=== PATIENT | female | born 1950 | race Caucasian/White ===

== ENCOUNTER → 2024-04-15 12:58 | Outpatient (REF) | payer MEDICARE, OTHER, SELFPAY | LOC: MRI 3T 12:58 | PROVIDERS: ATTENDING PHYSICIAN Pain Medicine Pain Medicine; FAMILY PHYSICIAN Internal Medicine | DX: M54.16 Radiculopathy, lumbar region (principal) | CPT/HCPCS: 72148 ==

== ENCOUNTER → 2024-06-09 10:54 | Outpatient (REF) | payer MEDICARE, OTHER, SELFPAY | LOC: WDC 10:54 | PROVIDERS: ATTENDING PHYSICIAN Obstetrics & Gynecology Gynecology; FAMILY PHYSICIAN Internal Medicine | DX: Z12.31 Encounter for screening mammogram for malignant neoplasm of breast (principal) | CPT/HCPCS: 77063; 77067 ==

== ENCOUNTER → 2024-09-15 20:17 | Outpatient (REF) | payer MEDICARE, OTHER, SELFPAY | LOC: MRI 20:17 | PROVIDERS: ATTENDING PHYSICIAN Pain Medicine Pain Medicine | DX: G57.00 Lesion of sciatic nerve, unspecified lower limb (principal) | CPT/HCPCS: 72195 ==

== ENCOUNTER → 2024-11-14 10:45 | Outpatient (REF) | payer MEDICARE, OTHER, SELFPAY | LOC: PAVMRI 10:45 | PROVIDERS: ATTENDING PHYSICIAN Pain Medicine Pain Medicine; FAMILY PHYSICIAN Internal Medicine | DX: M54.16 Radiculopathy, lumbar region (principal); M96.1 Postlaminectomy syndrome, not elsewhere classified | CPT/HCPCS: 72148 ==

== ENCOUNTER 2025-05-26 09:15 | Inpatient (IN) | payer MEDICARE, OTHER, SELFPAY ==
[2025-05-23 20:00] VITALS: BP 148/68
[2025-05-23] MEDS: DILAUDID 0.25 MG IV (21:27)
[2025-05-23] MEDS: DECADRON 10 MG IV (21:27)
[2025-05-23 21:39] VITALS: BP 87/68
--- NOTE | 2025-05-23 21:48 | ED.GENMED ---
History of Present Illness
<Carlos Dick DO - Last Filed: 05/23/25 21:52>
General
Chief Complaint: Musculo-Skeletal Complaint
Time Seen by Provider: 05/23/25 20:56
<Lynn Clancy COAGULATION OPERATOR - Last Filed: 05/23/25 23:35>
General
Source: patient
Exam Limitations: none
Nursing documentation reviewed up to this point in time: agreed with
History of Present Illness
History of Present Illness:
Patient to ED with complaint of severe pain to left buttocks radiating down left posterior leg. Symptoms started approx 1 week ago. No history of trauma. She has a history of chronic low back pain. Takes hydrocodone for this pain. Pain meds
have not been effective with this pain. Denies fever/chills. +nausea. No vomiting or diarrhea. No skin rash. Denies any history of trauma. No bowel or bladder issues, no saddle paresthesia. 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
medrol dose pack but this has not improved her symptpoms. Brought to ED by spouse for eval.
Past History
<Carlos Dick DO - Last Filed: 05/23/25 21:52>
Social History
Tobacco: Non-smoker
Personal:
<Lynn Clancy COAGULATION OPERATOR - Last Filed: 05/23/25 23:35>
Past History
ED Past Medical History: HTN, Psychiatric (depression) and Other (chronic low back pain)
Review of Systems
<Lynn Clancy NP - Last Filed: 05/23/25 23:35>
Review of Systems
Allergies reviewed?: Yes
All Other Systems: ROS reviewed and negative except as documented in HPI and ROS
Constitutional: Reports no symptoms
EENT: Reports no symptoms
Respiratory: Reports no symptoms
Cardiac: Reports no symptoms
ABD/GI: Reports no symptoms
Musculoskeletal: Reports other (Chonic low back pain. New pain left buttock radiating down left leg)
Skin: Reports no symptoms
Neurological: Reports other (nerve pain left buttocks radiating down LLE)
Psychiatric: Reports no symptoms
Phy Exam
<Lynn Clancy, COAGULATION OPERATOR - Last Filed: 05/23/25 23:35>
General Physical Exam
General Presentation: moderate distress
General age: appears stated age
General Skin: warm and dry
General Habitus: normal
General Mental: alert
Cardiovascular Exam
Cardiovascular Exam: regular rate/rhythm and no edema
Pulmonary Exam
Pulmonary Exam: no respiratory distress and chest non tender
Musculoskeletal Exam
Musculoskeletal Exam: no edema, neuro vasc intact and other (Nerve pain left buttock radiating down left leg. LLE neurovasc intact)
Skin Exam
Skin Exam: normal color and warm/dry
Psychiatric Exam
Psychiatric Exam: normal mood/affect
Course
<Carlos Dick, DO - Last Filed: 05/23/25 21:52>
Orders/Labs/Results
Orders:
Orders
05/23/25 21:21
Dexamethasone Sod Phosphate [Decadron] 10 mg IV NOW STA
HYDROmorphone [Dilaudid] 0.25 mg IV NOW STA
05/23/25 21:47
diazePAM [Valium Injection] 5 mg IV NOW STA
05/23/25 22:08
IV Insert/Care/Rem.- Treatment PRN
Complete Blood Count/With Diff Urgent
Comprehensive Metabolic Panel Urgent
05/23/25 23:34
HYDROmorphone [Dilaudid] 0.5 mg IV NOW STA
Abnormal Lab Results
05/23/25
22:08
RBC 3.11 L 10^6/uL
(4.20-5.40)
Hgb 9.8 L g/dL
(12.0-16.0)
Hct 28.3 L %
(37.0-47.0)
MCH 31.5 H pg
(27.0-31.0)
MPV 10.5 H fL
(7.4-10.4)
Absolute Lymphs (auto) 1.0 L 10^3/uL
(1.2-3.4)
Lymphocytes % 16.1 L %
(20.5-51.1)
BUN 28 H mg/dl
(7-17)
05/23/25 22:08
05/23/25 22:08
Vital Signs
Initial and Last Documented VS:
Initial Vital Signs
Temp Pulse Resp BP
97.9 F 81 14 148/68
05/23/25 20:00 05/23/25 20:00 05/23/25 20:00 05/23/25 20:00
Last Documented Vital Signs
Temp Pulse Resp BP Pulse Ox
98.1 F 82 24 106/56 99
05/23/25 21:39 05/23/25 22:45 05/23/25 22:45 05/23/25 22:30 05/23/25 22:45
<Lynn Clancy NP - Last Filed: 05/23/25 23:35>
Orders/Labs/Results
Orders:
Orders
05/23/25 21:21
Dexamethasone Sod Phosphate [Decadron] 10 mg IV NOW STA
HYDROmorphone [Dilaudid] 0.25 mg IV NOW STA
05/23/25 21:47
diazePAM [Valium Injection] 5 mg IV NOW STA
05/23/25 22:08
IV Insert/Care/Rem.- Treatment PRN
Complete Blood Count/With Diff Urgent
Comprehensive Metabolic Panel Urgent
05/23/25 23:34
HYDROmorphone [Dilaudid] 0.5 mg IV NOW STA
Abnormal Lab Results
05/23/25
22:08
RBC 3.11 L 10^6/uL
(4.20-5.40)
Hgb 9.8 L g/dL
(12.0-16.0)
Hct 28.3 L %
(37.0-47.0)
MCH 31.5 H pg
(27.0-31.0)
MPV 10.5 H fL
(7.4-10.4)
Absolute Lymphs (auto) 1.0 L 10^3/uL
(1.2-3.4)
Lymphocytes % 16.1 L %
(20.5-51.1)
BUN 28 H mg/dl
(7-17)
05/23/25 22:08
05/23/25 22:08
Vital Signs
Initial and Last Documented VS:
Initial Vital Signs
Temp Pulse Resp BP
97.9 F 81 14 148/68
05/23/25 20:00 05/23/25 20:00 05/23/25 20:00 05/23/25 20:00
Last Documented Vital Signs
Temp Pulse Resp BP Pulse Ox
98.1 F 82 24 106/56 99
05/23/25 21:39 05/23/25 22:45 05/23/25 22:45 05/23/25 22:30 05/23/25 22:45
<Carlos Dick, DO - Last Filed: 05/23/25 21:52>
*Pulse Oximetry
SaO2: 100
Oxygen Mode of Delivery: Room air
<Lynn Clancy, COAGULATION OPERATOR - Last Filed: 05/23/25 23:35>
*Pulse Oximetry
Patient hypoxic: no
*Critical Care Note
Total Time (30-74mins, 75-104mins- exclusive of procedures): Not Applicable
<Lynn Clancy, COAGULATION OPERATOR - Last Filed: 05/23/25 23:35>
Update Note
Update Note:
Patient to ED [facility] nerve pain left buttock radiating down left leg. Taking hydrocodone and medrol dose pack without improvement. LLE neurovasc intact. No s/s cauda equina. Given IV dilaudid intially. She reports no mprovement. Case discussed
with Dr. Dick who also examined this patient. Recommends adding IV valium. She reports feeling more relaxed but apolonia is unchanged, is still unable to stand on LLE due to pain. Unable to ambulate due to pain. Will admit to hospitalist.
ED Attending Note
<Carlos Dick DO - Last Filed: 05/23/25 21:52>
ED Attending Note
Patient seen and examined by attending physician: Yes
I performed the substantive portion of visit, reviewed & personally made and approve the management plan that is documented in note by myself or JONATHAN.: Yes
ED Attending Note:
I have seen and evaluated the patient with a [id number] encounter. I have spoken to the advance practicer provider and involved in the medical history, the physical exam, medical decision making.
Evaluation and management service: agree unless noted differently below.
Results interpretation: agree unless noted differently below.
Focused HPI: 74-year-old female presenting with for worsening left buttock and leg pain. She has a longstanding history of sciatica that has required surgery in the past. Patient states that the pain has worsened over the past week despite
taking Medrol Dosepak. She localizes the pain to her left buttock trouble defecating her urine
Physical exam: Uncomfortable, tearful, point tenderness to left buttock. Distal extremity neurovascularly intact
Medical Decision Making: I raise suspicion for piriformis syndrome given location of pain. Patient was already given Decadron and Dilaudid prior to my assessment. Will give dose of IV Valium
-
Portions of this chart may have been created with voice recognition software.� Occasional wrong word or��sound alike� substitutions may have occurred due to the inherent limitations of voice recognition software.
Discharge Plan
Departure
Patient Disposition: Admit
Date of Disposition: 05/23/25
Time of Disposition: 22:57
Presentation/result/management discussed w/ accepting MD/DO: Hospitalist
Condition: Fair
Covid-19: Not Applicable
Discharge Problem:
Radicular pain of left lower extremity
Prescriptions:
No Action
tizanidine 4 mg Tablet
4 mg PO BID PRN (Reason: pain)
tramadol 50 mg Tablet
50 mg PO BID PRN (Reason: pain)
mirtazapine 30 mg Tablet
30 mg PO DAILY
lisinopril 5 mg Tablet
5 mg PO DAILY
spironolactone 50 mg Tablet
50 mg PO DAILY
hydrocodone-acetaminophen 10-300 mg Tablet
1 tab PO Q6H PRN (Reason: pain)
Referrals:
Amy Ulloa DO [Family Provider, Internal Medicine]
Interventions
Interventions:
*Risk Screen - Suicide Last Done: 05/23/25 20:00
*General Assessment Last Done: 05/23/25 20:00
*Neglect/Abuse Screening Last Done: 05/23/25 20:00
*ED- Fall Risk Assessment Last Done: 05/23/25 20:50
ED-Musculoskeletal Assessment Last Done: 05/23/25 20:50
Discharge Date and Time
Print Language: MARTINIQUAIS
[2025-05-23 22:09] VITALS: BP 108/52
[2025-05-23 22:16] LABS: Hematocrit 28.3 % (37.0-47.0); Hemoglobin 9.8 g/dL (12.0-16.0); Mean Corp Hgb Conc. 34.6 g/dL (33.0-37.0); Mean Corpuscular Volume 91.0 fL (81.0-99.0); Nucleated Red Blood Cells % 0 %; Platelet Count 222 10^3/uL (130-400); Red Cell Dist. Width 11.9 % (11.5-14.5)
[2025-05-23] MEDS: VALIUM INJECTION 5 MG IV (22:16)
[2025-05-23 22:30] VITALS: BP 106/56
[2025-05-23 22:31] LABS: ALT (SGPT) 34 U/L (0-35); AST (SGOT) 25 U/L (14-36); Albumin 4.2 g/dl (3.5-5.0); Alkaline Phosphatase 50 U/L (38-126); Blood Urea Nitrogen 28 mg/dl (7-17); Calcium 9.3 mg/dl (8.4-10.2); Carbon Dioxide 27 mmol/L (22-30); Chloride 103 mmol/L (98-107); Estimated Creatinine Clearance 36 ml/min; Glucose 98 mg/dl (70-99); Potassium 4.3 mmol/L (3.5-5.1); Sodium 135 mmol/L (135-145); Total Protein 6.7 g/dl (6.3-8.2); eGFR > 60.00
[2025-05-23 23:00] VITALS: BP 138/93
--- NOTE | 2025-05-23 23:44 | HPS.HSE ---
Addendum entered and electronically signed by Allen Welsh DO 05/24/25 00:22:
Patient seen and examined independently. Agree with findings and plan as set forth by Jessica Fish PA-C.
Patient is a 74y F with PMH significant for lumbar DDD and chronic pain who presents to ED complaining of LLE radicular / sciatic pain for about one week. Patient denies any injury, trauma, heavy lifting, increased activity, etc. Pain radiates
across the L buttocks and into the posterior L thigh and has been quite severe.
Patient took a Medrol dose pack at home with no relief in her symptoms.
She has a prior history of DDD s/p surgery / laminectomy many years ago.
Ass:
LLE Radiculopathy
Intractable Pain secondary to the above
Lumbar DDD
Benign Hypertension
Chronic Anemia
MGUS
Insomnia
Plan:
Observe overnight for further evaluation and treatment.
? HNP v piriformis syndrome v other.
MRI lumbar spine in the AM.
IR eval for possible LESI if target identified.
Pain control efforts will continue.
PT / OT evaluations.
Follow-up with Dr. Hernandez as an outpatient after adequate pain control.
Continue other usual home medications.
Original Note:
Family Physician
-
Family Physician: Amy Ulloa
Chief Complaint
-
Severe Left Lower Extremity Pain
History of Present Illness
Patient is a 74 t/o female past medical history of hypertension, MGUS, chronic anemia, and chronic back pain who presents with severe left lower extremity pain. Patient reports chronic pain which she is usually able to manage with tramadol and
hydrocodone. About a week ago she developed severe pain radiating from her left gluteal fold down the back of her leg. She reports she is unable to ambulate because the pain is so severe. She completed a Medrol Dose Kelvin without any improvement in
her symptoms. She denies any numbness or tingling down the leg. She reports some she feels a pain between her vaginal and rectal area, but denies any saddle numbness. She denies bowel or bladder incontinence.
Medical History
Past Medical History
Past Medical History: Reports Other
Additional Past Medical History:
Essential Hypertension
MGUS
Chronic Anemia
Chronic Low Back Pain
Insomnia
Migraine Headaches
Past Surgical History: Reports Other
Additional Past Surgical History:
L5-S1 Discectomy
Section
Social History
Tobacco: Non-smoker
Personal:
Living: With Family
Family History
Family History: Not pertinent
Allergies / Home Medications
Allergies reflects when Allergies were last updated in [facility].
Home Medications with original date entered in [facility]
Allergy/Medication List:
Allergies
Allergy/AdvReac Type Severity Reaction Status Date / Time
clindamycin (Clindamycin) Allergy Unknown Verified 05/23/25 20:38
Home Medications
hydrocodone 10 mg-acetaminophen 300 mg tablet 1 tab PO Q6H PRN pain 05/23/25
lisinopril 5 mg tablet 5 mg PO DAILY 05/23/25
mirtazapine 30 mg tablet 30 mg PO DAILY 05/23/25
spironolactone 50 mg tablet 50 mg PO DAILY 05/23/25
tizanidine 4 mg tablet 4 mg PO BID PRN pain 05/23/25
tramadol 50 mg tablet 50 mg PO BID PRN pain 05/23/25
Review of Systems
-
A 12 point ROS was completed and negative except as noted: Yes
Physical Exam
Vital Signs
Vital Signs
Temp Pulse Resp BP Pulse Ox
98.1 F 82 24 106/56 99
05/23/25 21:39 05/23/25 22:45 05/23/25 22:45 05/23/25 22:30 05/23/25 22:45
Physical Exam
General: Well Developed, Well Nourished and Pain (Appears in significant pain)
HEENT: Anicteric and Moist mucous membranes
Respiratory: Clear and Non Labored Respirations
Cardiac: S1/S2 and Regular Rhythm
GI: Soft and Non Tender
Rectal: Deferred by Provider
Musculoskeletal: No Clubbing, No Cyanosis and No Edema
Skin: Warm and Dry
Neuro: Awake, Alert, Oriented and Nonfocal/grossly intact
Psych: Calm
Laboratory Results
-
05/23/25 22:08
05/23/25 22:08
Laboratory Results
Total Bilirubin 0.2 mg/dl (0.2-1.3) 05/23/25 22:08
AST 25 U/L (14-36) 05/23/25 22:08
ALT 34 U/L (0-35) 05/23/25 22:08
Alkaline Phosphatase 50 U/L (38-126) 05/23/25 22:08
Data Reviewed
-
Lab Data: Labs Reviewed by me
Impression/Plan
-
Severe Left Lower Extremity Radicular Pain
-Check Lumbar Spine MRI
-Continue Decadron 4mg Q8
-Start Tylenol 1000mg TID
-Add Toradol for mild pain, Oxycodone for moderate pain and Dilaudid for severe pain
-Add gabapentin 100mg TID
-Add lidocaine patch to posterior left thigh
-Consider ANTOINETTE following imaging
Essential Hypertension
-Continue lisinopril and spironolactone with hold parameters
Insomnia
-Continue mirtazapine
Chronic Anemia
-Hgb seems related stable per family
Hx MGUS - Follows with Dr. Thompson
DVT Proph: SCDs
Code Status: Full Code
[2025-05-23 23:54] VITALS: BP 126/65
[2025-05-23] MEDS: DILAUDID 0.5 MG IV (23:58)
[2025-05-24 00:30] VITALS: BP 134/68; BMI 17.1
--- NOTE | 2025-05-24 00:45 | PTCARENOTE ---
New admit to 2S from ER via stretcher and able to walk to room bed with slow but steady gait and no device. Pt. A&Ox3, visible distress, even and unlabored breathing on room air, and VSS. Bed locked and in lowest position, side rails in place, and
call light within reach.
[2025-05-24] MEDS: ZANAFLEX 4 MG PO ×2 (01:15→22:23)
[2025-05-24] MEDS: REMERON 30 MG PO ×2 (01:15→21:37)
[2025-05-24] MEDS: TORADOL 10 MG IV ×3 (01:17→18:11)
[2025-05-24] MEDS: ROXICODONE 5 MG PO ×2 (02:43→18:13)
[2025-05-24] MEDS: FLUSH (NSS) 2 FLUSH IV ×2 (03:56→04:35)
[2025-05-24] MEDS: VALIUM INJECTION 5 MG IV (03:57)
[2025-05-24] MEDS: DILAUDID 0.5 MG IV ×4 (04:34→20:15)
[2025-05-24 06:42] LABS: Hematocrit 27.8 % (37.0-47.0); Hemoglobin 9.7 g/dL (12.0-16.0); Mean Corp Hgb Conc. 34.9 g/dL (33.0-37.0); Mean Corpuscular Volume 89.4 fL (81.0-99.0); Platelet Count 213 10^3/uL (130-400); Red Cell Dist. Width 11.7 % (11.5-14.5)
[2025-05-24 06:58] LABS: Blood Urea Nitrogen 24 mg/dl (7-17); Calcium 9.1 mg/dl (8.4-10.2); Carbon Dioxide 24 mmol/L (22-30); Chloride 107 mmol/L (98-107); Estimated Creatinine Clearance 43 ml/min; Glucose 138 mg/dl (70-99); Potassium 4.8 mmol/L (3.5-5.1); Sodium 136 mmol/L (135-145); eGFR > 60.00
[2025-05-24 07:10] VITALS: BP 116/64
[2025-05-24] MEDS: TYLENOL 1000 MG PO ×3 (07:44→21:37)
[2025-05-24] MEDS: ALDACTONE 50 MG PO (07:45)
[2025-05-24] MEDS: NEURONTIN 100 MG PO (07:45)
[2025-05-24] MEDS: DECADRON 4 MG IV (07:48)
[2025-05-24] MEDS: ZESTRIL PO (07:55)
--- NOTE | 2025-05-24 09:48 | W.PN.HOSP.TC ---
Today's Communication/Plan
-
awaiting MRI
standing Toradol
new start Gabapentin
pain control
PT/OT, consider PMNR consult tomorrow
Assessment / Plan
Assessment / Plan
Patient is a 74y F with PMH significant for lumbar DDD and chronic pain who presents to ED complaining of LLE radicular / sciatic pain for about one week. Patient denies any injury, trauma, heavy lifting, increased activity. Pain radiates
across the L buttocks and into the posterior L thigh and has been quite severe.
Patient took a Medrol dose pack at home with no relief in her symptoms.
She has a prior history of DDD s/p surgery / laminectomy many years ago.
LLE Radiculopathy
Intractable Pain secondary to the above
Lumbar DDD
-herniated disc versus piriformis syndrome versus other
-awaiting MRI Lumbar spine results
-Make Toradol IV standing q8 hours x 2 days
-new start Gabapentin (patient had been on Lyrica in past)
-continue IV steroids through today
-IR eval for possible LESI if target identified.
-oxycodone PRN with IV Dilaudid PRN breakthrough pain
-BENEFITS SALES CONSULTANT Tizanidine PRN
-based on MRI results, consider consult to PMNR tomorrow
Benign Hypertension
-BENEFITS SALES CONSULTANT Lisinopril
-BENEFITS SALES CONSULTANT Spironolactone
Chronic Anemia
MGUS
Insomnia
DVT PPx SCD
GI PPx - Protonix while on steroids and Toradol
FULL CODE
Anticipated Discharge: 24 - 48 hours
Subjective/Interval History
-
Date of Service: May 24, 2025
mildly improved symptoms this morning although continues to have pain specifically along left buttocks
Objective Data
-
Labs:
Laboratory Results
05/23/25 05/24/25
22:08 05:45
WBC 5.9 6.3
Hgb 9.8 L 9.7 L
Hct 28.3 L 27.8 L
Plt Count 222 213
Sodium 135 136
Potassium 4.3 4.8
Chloride 103 107
Carbon Dioxide 27 24
BUN 28 H 24 H
Creatinine 0.9 0.7
Glucose 98 138 H
Calcium 9.3 9.1
Total Bilirubin 0.2
AST 25
ALT 34
Alkaline Phosphatase 50
Vital Signs:
Vital Signs
Temp Pulse Resp BP Pulse Ox
98.5 F 82 16 116/64 99
05/24/25 07:10 05/24/25 07:55 05/24/25 07:10 05/24/25 07:55 05/24/25 07:45
I&O
05/23/25 05/24/25 05/25/25
06:59 06:59 06:59
Intake Total 480 / 480
Balance 480 / 480
Review of Systems
-
History Source: Patient
All other systems: Reviewed and negative
Physical Exam
-
General: Other (appears in pain )
HEENT: PERRLA
Respiratory: Clear to Auscultation; Negative Wheezes
Cardiac: Regular Rhythm and S1/S2
GI: Soft and Nontender
Musculoskeletal: No Edema and Other (straight leg test positive; [place] test positive (extension and internal rotation of hip))
Skin: Warm and Dry; Negative Rash
Neuro: AO x 3
Psych: Calm
Data Reviewed
-
Diagnostic Radiology: Report Reviewed by me
Labs: Labs Reviewed by me
[2025-05-24] MEDS: LIDOCAINE 4% PATCH 1 PATCH TOPICAL (10:16)
[2025-05-24] MEDS: MIRALAX 17 GRAMS PO (10:16)
[2025-05-24] MEDS: DILAUDID 0.25 MG IV (10:18)
[2025-05-24] MEDS: PROTONIX 40 MG PO (10:19)
--- NOTE | 2025-05-24 12:01 | CM ---
Initial assessment completed with pt and at bedside.
Pt is OBS and OBS letter reviewed verbally. is expecting Obs to be switched to Inpt.
Pt is a 74yr old female admitted with chronic pain and lumbar disc pain/sciatic pain.
At baseline, pt lives with her in a level home with 2ste.
Pt is indep/driving at baseline.
No equipment or hx of VN/SNF
awaiting MRI
PCP; Amy Ulloa
Pharm; [facility]
PLAN; TBD based on hospital course. Will have PT/OT assessments
[2025-05-24] MEDS: FLUSH (NSS) 1 FLUSH IV (13:16)
[2025-05-24 14:05] VITALS: BP 136/57; PULSE 92; O2SAT 100
[2025-05-24 14:07] VITALS: BP 136/57; PULSE 92; O2SAT 100
--- NOTE | 2025-05-24 14:29 | W.PN.UPDATE ---
Update Note
Progress Note Update
MRI lumbar spine without significant change and without findings to explain left sided pain. Patient's (Radiologist) asking about MR neurography, discussed with Radiology here and MR with lumbosacral plexus protocol can be ordered, usually
on an outpatient basis. Clinically appears patient has Pyriformis syndrome. She has been treated with steroid injection (without success) and discussed option of surgery for treatment in past but opted out of surgery. We discussed following up
again with surgeon as conservative measures have been unsuccessful.
She was able to ambulate with PT. Will keep another night for pain control, increase Gabapentin dose and follow up Physiatry recs tomorrow. Anticipate she can DC tomorrow and obtain the MR with lumbosacral plexus protocol as outpatient and follow
up with her outpatient specialists.
[2025-05-24 15:05] VITALS: BP 134/78
[2025-05-24] MEDS: NEURONTIN 200 MG PO ×2 (15:27→21:37)
[2025-05-24] MEDS: REMOVE LIDOCAINE PATCH 1 PATCH REMOVE (19:34)
[2025-05-24 23:20] VITALS: BP 117/58
[2025-05-25] MEDS: TORADOL 10 MG IV ×3 (02:44→17:55)
--- NOTE | 2025-05-25 04:27 | PTCARENOTE ---
pt tolerated pain med and Zanaflex well. Pt slept throughout the night, frequent checks pt snoring supine in bed. Pt aroused to voice and physical contact at 02:44 time of her scheduled Toradol. Pt was pain re-assessed asked how was her pain and her
night, '' I was in pain all night '' . Pt was educated and encouraged to use call argueta when in pain.
[2025-05-25 06:11] LABS: Hematocrit 28.0 % (37.0-47.0); Hemoglobin 9.8 g/dL (12.0-16.0); Mean Corp Hgb Conc. 35.0 g/dL (33.0-37.0); Mean Corpuscular Volume 88.9 fL (81.0-99.0); Platelet Count 211 10^3/uL (130-400); Red Cell Dist. Width 11.9 % (11.5-14.5)
[2025-05-25 06:42] LABS: Blood Urea Nitrogen 20 mg/dl (7-17); Calcium 8.9 mg/dl (8.4-10.2); Carbon Dioxide 27 mmol/L (22-30); Chloride 105 mmol/L (98-107); Estimated Creatinine Clearance 43 ml/min; Glucose 88 mg/dl (70-99); Potassium 4.0 mmol/L (3.5-5.1); Sodium 135 mmol/L (135-145); eGFR > 60.00
[2025-05-25 06:43] LABS: INR 1.00; PT 13.5 Sec (11.4-14.6)
[2025-05-25 07:10] VITALS: BP 141/72
[2025-05-25] MEDS: PROTONIX 40 MG PO (08:20)
[2025-05-25] MEDS: NEURONTIN 200 MG PO ×3 (08:20→21:10)
[2025-05-25] MEDS: ZESTRIL 5 MG PO (08:21)
[2025-05-25] MEDS: ALDACTONE 50 MG PO (08:22)
[2025-05-25] MEDS: TYLENOL PO ×2 (08:24→16:32)
[2025-05-25] MEDS: LIDOCAINE 4% PATCH TOPICAL (08:24)
[2025-05-25] MEDS: DILAUDID 0.5 MG IV (08:27)
--- NOTE | 2025-05-25 09:00 | CON.MD ---
Documented by User: Roberta Veliz PA-C 05/25/25 17:47
Consultation - Medical
-
Referring Provider:�
Chief Complaint:�Ambulatory dysfunction, left lower extremity pain
�
History of Present Illness:�74 year old female with PMH of (Hypertension, chronic anemia, MGUS, insomnia, significant for lumbar DDD and chronic pain) who presents to [facility] ED complaining of LLE radicular / sciatic pain for about one week. Patient
denies any injury, trauma, heavy lifting, increased activity, etc. Pain radiates across the Left buttocks and into the posterior Left thigh and has been quite severe.
Patient took a Medrol dose pack at home with no relief in her symptoms. She has a prior history of DDD s/p surgery / laminectomy many years ago.
Received Toradol IV q8 hours x 2 days. IV steroids, Started on Gabapentin as she has been on Lyrica in the past, Dilaudid IV and oxycodone prn.
MRI of Lumbar - Chronic degenerative changes of the lumbar spine. At L4-L5, mild bilateral recess stenosis and minimal left neuroforaminal stenosis. At L5-S1, mild to moderate right lateral recess and right neuroforaminal stenosis. Similar
appearance compared to the lumbar spine MRI from 11/14/2024. No clear MRI evidence for left-sided nerve root impingement to explain the patient's left radicular symptoms.
MRI lumbar spine without significant change and without findings to explain left sided pain. Patient's (Radiologist) asking about MR neurography, discussed with Radiology here and MR with lumbosacral plexus protocol can be ordered, usually
on an outpatient basis. Clinically appears patient has Pyriformis syndrome. She has been treated with steroid injection (without success) and discussed option of surgery for treatment in past but opted out of surgery. Recommended following up
again with surgeon as conservative measures have been unsuccessful.
Patient reports that she is having difficulty ambulating because of the pain. Pain started at the bottom of her left buttocks and radiate down to her heels. She has tried IV steroid, pain medication, muscle relaxer without any success. She states
this pain is different than her previous ones and has been the worst so for. She takes Valium at night for anxiety.
�
Past Medical History:�Hypertension, diabetes type 2, nephrolithiasis, subarachnoid hemorrhage, renal insufficiency,
Procedure History:�Lumbar Laminectomy,
Family History:�non contributory
�
Social History:�
Functional Level Premorbidly:�Independent with all activities�
Functional Level Currently:�Bed�independent-supervision, [id number], ambulated 50 feet x 2, Eating�independent, ADLs- Mod I- independent
�
Tobacco:�Denies�
Alcohol:�Denies�
Drug use:�Denies�
�
Lives with:�Spouse
24-hour assistance available:�
Number of floors: 55+ -one story with basement
# steps to enter:�2
# steps to second floor:
Potential First floor set up:�yes
Driving:�yes
Occupation:�retired
�
�
Allergies:�
Allergy/AdvReac Type Severity Reaction Status Date / Time
clindamycin (Clindamycin) Allergy Unknown Verified 05/23/25 20:38
Review of Systems:�
Constitutional: (x) abNormal _fatigue
Eye: (x) Normal _
Ear/Nose/Throat: (x) Normal _
Respiratory: (x) Normal _
Cardiovascular: (x) Normal _
Gastrointestinal: (x) Normal _
Genitourinary: (x) Normal _
Musculoskeletal: (x) abNormal _LLE pain, left buttocks pain
Integumentary: (x) Normal _
Neurologic: (x) Normal _
Psychiatric: (x) Normal _
Endocrine: (x) Normal _
Hematologic/Lymphatic: (x) Normal _
Allergic/Immunologic: (x) Normal _
�
Medications:�
Active Current Visit Medication List
Category Date Time Status
Acetaminophen [Tylenol] Med 05/24/25 08:00 Active
1,000 mg PO TID
Flush (0.9% Sodium Chloride) [Flush (Nss)] Med 05/24/25 01:00 Active
See Dose Instructions IV PER PROTOCOL
Gabapentin [Neurontin] Med 05/24/25 14:21 Active
200 mg PO TID
HYDROmorphone [Dilaudid] Med 05/24/25 00:29 Active
0.5 mg IV Q3HPRN PRN
Ketorolac [Toradol] Med 05/24/25 10:10 Active
10 mg IV Q8H
Lidocaine [Lidocaine 4% Patch] Med 05/24/25 08:00 Active
1 patch TOPICAL DAILY
Lisinopril [Zestril] Med 05/24/25 08:00 Active
5 mg PO DAILY
Mirtazapine [Remeron] Med 05/24/25 22:00 Active
30 mg PO HS
Oxycodone [Roxicodone] Med 05/24/25 00:29 Active
5 mg PO Q4HPRN PRN
Pantoprazole [Protonix] Med 05/24/25 11:00 Active
40 mg PO DAILY
Polyethylene Glycol Powder [Miralax] Med 05/24/25 08:00 Active
17 grams PO DAILY
Remove Patch [Remove Lidocaine Patch] Med 05/24/25 20:00 Active
1 patch REMOVE DAILY@1999
Spironolactone [Aldactone] Med 05/24/25 08:00 Active
50 mg PO DAILY
Tizanidine [Zanaflex] Med 05/24/25 00:29 Active
4 mg PO BID PRN muscle spasms/pain muscle spasms/pain
Vitals:
Temp Pulse Resp BP Pulse Ox
98.2 F 77 16 141/72 100
05/25/25 08:22 05/25/25 08:22 05/25/25 08:22 05/25/25 08:22 05/25/25 8:22
Height 4 ft 11 in
Actual Weight 38.374 kg
Body Mass Index (BMI) 17.1
Physical Exam:�
General Appearance/Observation: thin female in no apparent distress, but looks uncomfortable lying in bed.�
Pain/Comfort Assessment: LLE pain
Mood/Affect: appropriate,
Integumentary/Operative Site:�No lesions over the course of exam.
�
Eyes: Conjunctiva/Lids: normal��� Pupils: pupils equal round
Ears/Nose/Throat: oral mucosa moist, throat clear.������������ Lips/Teeth/Gums: normal
Neck: No muscle spasm or tenderness�
Cardiovascular: Heart: regular, no murmur�
Pulses: dorsalis pedis 2+ bilaterally�
Respiratory: Respiratory Effort/Chest Expansion: normal������ Auscultation: Clear to auscultation bilaterally
Gastrointestinal: abdomen not tender, no distension, normal abdominal bowel sounds
Genitourinary: No Kim�
Extremities:�Edema: None�Cyanosis: None�Trophic�changes: None
�
Neurology Exam:
Orientation: Alert, Oriented to self, place, time
Memory: intact
Comprehension: intact
Two step command: intact
Cranial Nerves:
�� CNII:�Pupillary light reflex: Intact���Visual Field: NT
�� CN III, IV, : Extraocular muscles: Intact�
�� CN V:�Facial Sensation�at�Forehead: Intact,�Maxilla: Intact,�Mandible: Intact
�� CN VII:�Facial movement: Symmetric
�� CN VIII:�Hearing: Normal
�� CN IX/X:�Speech & swallow: Normal,�Position of Uvula: Midline
�� CN XI:�Shoulder shrug: Symmetric
�� CN XII:�Tongue protrusion: Midline
Sensory:
�� Light touch: Intact in bilateral upper and lower extremities
�
Reflexes:
�� Biceps: 2+ bilaterally
�� Brachioradialis: 2+ bilaterally
�� Triceps: 2+ bilaterally
�� Patellar: 2+ bilaterally
�� Achilles: 2+ bilaterally
�� Babinski: Down going bilaterally
�� Clonus:NT
�� Janis:NT
Cerebellar: Dysmetria/Ataxia: None�
SLR- negative bilaterally
Left gluteal cleft tender to palpation
Negative SIJ tenderness
Musculoskeletal:Motor: (Manual muscle scale 0-5)�
Muscle SA EF WE EE FF FA HF KE DF EHL PF
Right� 5 5 5 5 5 *4 5 5 5
Left 5 5 5 5 5 *4 5 5 5
*pain�
Tone: Normal in all extremities�
Range of Motion: Passively within normal limits in all extremities�
�
Lab Results
Labs
WBC 7.0 10^3/uL (4.8-10.8) 05/25/25 05:27
RBC 3.15 10^6/uL (4.20-5.40) L 05/25/25 05:27
Hgb 9.8 g/dL (12.0-16.0) L 05/25/25 05:27
Hct 28.0 % (37.0-47.0) L 05/25/25 05:27
MCV 88.9 fL (81.0-99.0) 05/25/25 05:27
MCH 31.1 pg (27.0-31.0) H 05/25/25 05:27
MCHC 35.0 g/dL (33.0-37.0) 05/25/25 05:27
RDW 11.9 % (11.5-14.5) 05/25/25 05:27
Plt Count 211 10^3/uL (130-400) 05/25/25 05:27
MPV 10.2 fL (7.4-10.4) 05/25/25 05:27
Abs Immat Gran (auto) 0.0 10^3/uL (0-0.05) 05/23/25 22:08
Absolute Neuts (auto) 4.4 10^3/uL (1.4-6.5) 05/23/25 22:08
Absolute Lymphs (auto) 1.0 10^3/uL (1.2-3.4) L 05/23/25 22:08
Absolute Monos (auto) 0.5 10^3/uL (0.1-0.6) 05/23/25 22:08
Absolute Eos (auto) 0.0 10^3/uL (0-0.7) 05/23/25 22:08
Absolute Basos (auto) 0.0 10^3/uL (0-0.2) 05/23/25 22:08
Immature Gran % 0.3 % (0-0.5) 05/23/25 22:08
Neutrophils % 74.2 % (42.2-75.2) 05/23/25 22:08
Lymphocytes % 16.1 % (20.5-51.1) L 05/23/25 22:08
Monocytes % 8.8 % (1.7-9.3) 05/23/25 22:08
Eosinophils % 0.3 % (0-6) 05/23/25 22:08
Basophils % 0.3 % (0-2) 05/23/25 22:08
Nucleated RBC % 0 % 05/23/25 22:08
PT 13.5 Sec (11.4-14.6) 05/25/25 05:27
INR 1.00 05/25/25 05:27
Sodium 135 mmol/L (135-145) 05/25/25 05:27
Potassium 4.0 mmol/L (3.5-5.1) 05/25/25 05:27
Chloride 105 mmol/L (98-107) 05/25/25 05:27
Carbon Dioxide 27 mmol/L (22-30) 05/25/25 05:27
BUN 20 mg/dl (7-17) H 05/25/25 05:27
Creatinine 0.7 mg/dL (0.6-1.0) 05/25/25 05:27
Estimated Creat Clear 43 ml/min 05/25/25 05:27
eGFR > 60.00 05/25/25 05:27
Glucose 88 mg/dl (70-99) 05/25/25 05:27
Calcium 8.9 mg/dl (8.4-10.2) 05/25/25 05:27
Total Bilirubin 0.2 mg/dl (0.2-1.3) 05/23/25 22:08
AST 25 U/L (14-36) 05/23/25 22:08
ALT 34 U/L (0-35) 05/23/25 22:08
Alkaline Phosphatase 50 U/L (38-126) 05/23/25 22:08
Total Protein 6.7 g/dl (6.3-8.2) 05/23/25 22:08
Albumin 4.2 g/dl (3.5-5.0) 05/23/25 22:08
Diagnostic Results:�as per HPI�
Lumbar MRI- Chronic degenerative changes of the lumbar spine. At L4-L5, mild bilateral recess stenosis and minimal left neuroforaminal stenosis. At L5-S1, mild to moderate right lateral recess and right neuroforaminal stenosis. Similar appearance
compared to the lumbar spine MRI from 11/14/2024. No clear MRI evidence for left-sided nerve root impingement to explain the patient's left radicular symptoms.
�
Assessment: 74-year-old female with PMH of prior laminectomy 10 years ago presented with intractable acute left lower extremity pain unresponsive to current pain regiment and associated with spasms that has affected her ADL and ambulatory dysfunction
�
Plan�
PM&R�PT/OT to increase independence with ADLs, improve balance, coordination, endurance, strength, mobility, community reintegration, decreased burden of care on others and family education.�
Lumbar Radiculopathy versus left lower extremity neuropathy/spasms: Follow up with OP interventional pain management, pain control, OP physical and aqua therapy, trigger injectons, stretching exercises.
HTN: Lisinopril 5 mg daily, spironolactone 50 mg daily
Psych: Psychology consult.� Monitor mood, medications as needed.�
Skin: monitor for pressure sores/rashes/lesions.�
Anemia: Hgb�9.8
FEN: BUN 20, creatinine 0.7
Pain: acetaminophen 1000 mg 3 times daily, oxycodone, IV Dilaudid.� Lidoderm patch, Toradol 10mg IV, gabapentin 200 mg 3 times daily
Bowel: recommend Colace and Senna, PRN bisacodyl.�
Bladder: Time void, PVRs, PRN straight cath.�
DVT Prophylaxis: mechanical, not on chemoprophylaxis.
Pulmonary: Incentive spirometry��
Safety: Continue to reinforce assistance with all transfers.�
Code Status:� Full code
Dispo�(date/plan/equipment needs): Home with family care.� Social history reviewed.�
Functional and Medical Goals:�Modified Independent with ADL�s, ambulation, transfers�
Discharge Destination:�Outpatient therapy versus home therapy
�Lumbar Radiculopathy versus left lower extremity neuropathy/spasms: Follow up with OP interventional pain management, pain control, OP therapy and stretching exercises. Trigger injections. To consider switching to an alternative muscle relaxer
besides Zanaflex or trial of Valium. Discontinue IV Dilaudid. Increase gabapentin as tolerated.
Bowel: recommend Colace and Senna, PRN bisacodyl.�
Bladder: Time void, PVRs, PRN straight cath.�
�Thank you for allowing me to care for your patient. Please contact me with any questions or concerns.

Documented by User: Aayush Rasmussen MD 05/25/25 20:49
Consultation - Medical
-
Referring Provider:�Dr. Nicholas Mora
Chief Complaint:�Ambulatory dysfunction, left lower extremity pain
�
History of Present Illness:�74 year old female with PMH of (Hypertension, chronic anemia, MGUS, insomnia, significant for lumbar DDD and chronic pain) who presents to [facility] ED complaining of LLE radicular / sciatic pain for about one week. Patient
denies any injury, trauma, heavy lifting, increased activity, etc. Pain radiates across the Left buttocks and into the posterior Left thigh and has been quite severe.
Patient took a Medrol dose pack at home with no relief in her symptoms. She has a prior history of DDD s/p surgery / laminectomy many years ago.
Received Toradol IV q8 hours x 2 days. IV steroids, Started on Gabapentin as she has been on Lyrica in the past, Dilaudid IV and oxycodone prn.
MRI of Lumbar - Chronic degenerative changes of the lumbar spine. At L4-L5, mild bilateral recess stenosis and minimal left neuroforaminal stenosis. At L5-S1, mild to moderate right lateral recess and right neuroforaminal stenosis. Similar
appearance compared to the lumbar spine MRI from 11/14/2024. No clear MRI evidence for left-sided nerve root impingement to explain the patient's left radicular symptoms.
MRI lumbar spine without significant change and without findings to explain left sided pain. Patient's (Radiologist) asking about MR neurography, discussed with Radiology here and MR with lumbosacral plexus protocol can be ordered, usually
on an outpatient basis. Clinically appears patient has Pyriformis syndrome. She has been treated with steroid injection (without success) and discussed option of surgery for treatment in past but opted out of surgery. Recommended following up
again with surgeon as conservative measures have been unsuccessful.
Patient reports that she is having difficulty ambulating because of the pain. Pain started at the bottom of her left buttocks and radiate down to her heels. She has tried IV steroid, pain medication, muscle relaxer without any success. She states
this pain is different than her previous ones and has been the worst so for. She takes Valium at night for anxiety.
She has had a variety of pain concerns in the back. 10 years ago she had a disc that needed to be removed. She did well afterwards with some minimum symptoms that persisted down the left leg. 3-1/2 years ago she had an exacerbation of pain had a
variety of different epidurals and injections with no real benefit. She had seen numerous providers for this and despite all the procedures she had she did not have any significant relief. Approximately 1 week ago she had a new type of pain that
was severe. She woke up with it without any known trauma or inciting event that led to the pain. This pain is different than her prior pains. She has pain with palpation and movement of the left back of the thigh. She notes she has tried various
things in the past for pain including gabapentin a low her thinks it was at a lower dose. She has taken Valium 5 mg at night for anxiety and sleep. She is currently taking tizanidine which does not seem to be helping. With this new pain
over the last week one of the things that helped her the most was heat over the area. She wants to make sure not to put too much heat over the area. Pain was so severe that her normal medications did not help. Her pain management physician was
away and she came to the emergency department because of the severity of the pain. She does have some radiating pain more chronically, controlled with tramadol typically up. This is not happening with the current pain concern. She does not recall
any new activities that she started no new exercise programs.
She did see her surgeon who did her recent bladder sling with no concerns of her current pain being related to the surgery.
�
Past Medical History:�Hypertension, diabetes type 2, nephrolithiasis, subarachnoid hemorrhage, renal insufficiency, cystocele
Procedure History:�Lumbar Laminectomy, numerous epidurals and back procedures. Recent bladder sling procedure a couple of weeks ago
Family History:�non contributory
�
Social History:�
Functional Level Premorbidly:�Independent with all activities�
Functional Level Currently:�Bed�independent-supervision, [id number], ambulated 50 feet x 2, Eating�independent, ADLs- Mod I- independent
�
Tobacco:�Denies�
Alcohol:�Denies�
Drug use:�Denies�
�
Lives with:�Spouse
24-hour assistance available:�Yes
Number of floors: 55+ -one story with basement
# steps to enter:�2
# steps to second floor: Full flight
Potential First floor set up:�yes
Driving:�yes
Occupation:�retired
�
�
Allergies:�
Allergy/AdvReac Type Severity Reaction Status Date / Time
clindamycin (Clindamycin) Allergy Unknown Verified 05/23/25 20:38
Review of Systems:�
Constitutional: (x) abNormal _fatigue
Eye: (x) Normal _
Ear/Nose/Throat: (x) Normal _
Respiratory: (x) Normal _
Cardiovascular: (x) Normal _
Gastrointestinal: (x) Normal _denies any bowel concerns. Continent
Genitourinary: (x) Normal _denies any bladder concerns. Continent
Musculoskeletal: (x) abNormal _LLE pain, left buttocks pain
Integumentary: (x) Normal _
Neurologic: (x) Normal _
Psychiatric: (x) Normal _
Endocrine: (x) Normal _
Hematologic/Lymphatic: (x) Normal _
Allergic/Immunologic: (x) Normal _
�
Medications:�
Active Current Visit Medication List
Category Date Time Status
Acetaminophen [Tylenol] Med 05/24/25 08:00 Active
1,000 mg PO TID
Flush (0.9% Sodium Chloride) [Flush (Nss)] Med 05/24/25 01:00 Active
See Dose Instructions IV PER PROTOCOL
Gabapentin [Neurontin] Med 05/24/25 14:21 Active
200 mg PO TID
HYDROmorphone [Dilaudid] Med 05/24/25 00:29 Active
0.5 mg IV Q3HPRN PRN
Ketorolac [Toradol] Med 05/24/25 10:10 Active
10 mg IV Q8H
Lidocaine [Lidocaine 4% Patch] Med 05/24/25 08:00 Active
1 patch TOPICAL DAILY
Lisinopril [Zestril] Med 05/24/25 08:00 Active
5 mg PO DAILY
Mirtazapine [Remeron] Med 05/24/25 22:00 Active
30 mg PO HS
Oxycodone [Roxicodone] Med 05/24/25 00:29 Active
5 mg PO Q4HPRN PRN
Pantoprazole [Protonix] Med 05/24/25 11:00 Active
40 mg PO DAILY
Polyethylene Glycol Powder [Miralax] Med 05/24/25 08:00 Active
17 grams PO DAILY
Remove Patch [Remove Lidocaine Patch] Med 05/24/25 20:00 Active
1 patch REMOVE DAILY@1999
Spironolactone [Aldactone] Med 05/24/25 08:00 Active
50 mg PO DAILY
Tizanidine [Zanaflex] Med 05/24/25 00:29 Active
4 mg PO BID PRN muscle spasms/pain muscle spasms/pain
Vitals:
Temp Pulse Resp BP Pulse Ox
98.2 F 77 16 141/72 100
05/25/25 08:22 05/25/25 08:22 05/25/25 08:22 05/25/25 08:22 05/25/25 8:22
Height 4 ft 11 in
Actual Weight 38.374 kg
Body Mass Index (BMI) 17.1
Physical Exam:�
General Appearance/Observation: thin female in no apparent distress, but looks uncomfortable lying in bed.�
Pain/Comfort Assessment: LLE pain can be severe, better with medications.
Mood/Affect: Very anxious
Integumentary/Operative Site:�No lesions over the course of exam.
�
Eyes: Conjunctiva/Lids: normal��� Pupils: pupils equal round
Ears/Nose/Throat: oral mucosa moist, throat clear.������������ Lips/Teeth/Gums: normal
Cardiovascular: Heart: regular, no murmur�
Pulses: dorsalis pedis 2+ bilaterally�
Respiratory: Respiratory Effort/Chest Expansion: normal������ Auscultation: Clear to auscultation bilaterally
Gastrointestinal: abdomen not tender, no distension, normal abdominal bowel sounds
Genitourinary: No Kim�
Extremities:�Edema: None�Cyanosis: None�Trophic�changes: None
�
Neurology Exam:
Orientation: Alert, Oriented to self, place, time
Memory: intact
Comprehension: intact
Two step command: intact
Cranial Nerves:
�� CNII:�Pupillary light reflex: Intact�
�� CN III, IV, : Extraocular muscles: Intact�
�� CN V:�Facial Sensation�at�Forehead: Intact,�Maxilla: Intact,�Mandible: Intact
�� CN VII:�Facial movement: Symmetric
�� CN VIII:�Hearing: Normal
�� CN IX/X:�Speech & swallow: Normal,�Position of Uvula: Midline
�� CN XI:�Shoulder shrug: Symmetric
�� CN XII:�Tongue protrusion: Midline
Sensory:
�� Light touch: Intact in bilateral upper and lower extremities
�
Reflexes:
�� Biceps: 2+ bilaterally
�� Brachioradialis: 2+ bilaterally
�� Triceps: 2+ bilaterally
�� Patellar: 2+ bilaterally
�� Achilles: 2+ bilaterally
�� Babinski: Down going bilaterally
�� Clonus:NT
�� Janis:NT
Cerebellar: Dysmetria/Ataxia: None�
SLR- negative bilaterally
Left gluteal cleft tender to palpation
Negative SIJ tenderness
Musculoskeletal:Motor: (Manual muscle scale 0-5)�
Muscle SA EF WE EE FF FA HF KE DF EHL PF
Right� 5 5 5 5 5 *4 5 5 5
Left 5 5 5 5 5 *2+ 2+* 5 5
*pain�
Tone: Normal in all extremities�
Range of Motion: Passively within functional limits in all extremities, does have some decreased range of motion at bilateral hips left greater than right
-Has significant pain and palpable spasm with triggering of muscle spasms on palpation of the left hamstrings, particularly on the lateral aspect. Has pain and tightness with straight leg raise on the left, no radiation of pain/numbness/tingling.
Does have some pain with external rotation of the left hip.
�
Lab Results
Labs
WBC 7.0 10^3/uL (4.8-10.8) 05/25/25 05:27
RBC 3.15 10^6/uL (4.20-5.40) L 05/25/25 05:27
Hgb 9.8 g/dL (12.0-16.0) L 05/25/25 05:27
Hct 28.0 % (37.0-47.0) L 05/25/25 05:27
MCV 88.9 fL (81.0-99.0) 05/25/25 05:27
MCH 31.1 pg (27.0-31.0) H 05/25/25 05:27
MCHC 35.0 g/dL (33.0-37.0) 05/25/25 05:
RDW 11.9 % (11.5-14.5) 05/25/25 05:27
Plt Count 211 10^3/uL (130-400) 05/25/25 05:27
MPV 10.2 fL (7.4-10.4) 05/25/25 05:27
Abs Immat Gran (auto) 0.0 10^3/uL (0-0.05) 05/23/25 22:08
Absolute Neuts (auto) 4.4 10^3/uL (1.4-6.5) 05/23/25 22:08
Absolute Lymphs (auto) 1.0 10^3/uL (1.2-3.4) L 05/23/25 22:08
Absolute Monos (auto) 0.5 10^3/uL (0.1-0.6) 05/23/25 22:08
Absolute Eos (auto) 0.0 10^3/uL (0-0.7) 05/23/25 22:08
Absolute Basos (auto) 0.0 10^3/uL (0-0.2) 05/23/25 22:08
Immature Gran % 0.3 % (0-0.5) 05/23/25 22:08
Neutrophils % 74.2 % (42.2-75.2) 05/23/25 22:08
Lymphocytes % 16.1 % (20.5-51.1) L 05/23/25 22:08
Monocytes % 8.8 % (1.7-9.3) 05/23/25 22:08
Eosinophils % 0.3 % (0-6) 05/23/25 22:08
Basophils % 0.3 % (0-2) 05/23/25 22:08
Nucleated RBC % 0 % 05/23/25 22:08
PT 13.5 Sec (11.4-14.6) 05/25/25 05:27
INR 1.00 05/25/25 05:27
Sodium 135 mmol/L (135-145) 05/25/25 05:27
Potassium 4.0 mmol/L (3.5-5.1) 05/25/25 05:27
Chloride 105 mmol/L (98-107) 05/25/25 05:27
Carbon Dioxide 27 mmol/L (22-30) 05/25/25 05:27
BUN 20 mg/dl (7-17) H 05/25/25 05:27
Creatinine 0.7 mg/dL (0.6-1.0) 05/25/25 05:27
Estimated Creat Clear 43 ml/min 05/25/25 05:27
eGFR > 60.00 05/25/25 05:27
Glucose 88 mg/dl (70-99) 05/25/25 05:27
Calcium 8.9 mg/dl (8.4-10.2) 05/25/25 05:27
Total Bilirubin 0.2 mg/dl (0.2-1.3) 05/23/25 22:08
AST 25 U/L (14-36) 05/23/25 22:08
ALT 34 U/L (0-35) 05/23/25 22:08
Alkaline Phosphatase 50 U/L (38-126) 05/23/25 22:08
Total Protein 6.7 g/dl (6.3-8.2) 05/23/25 22:08
Albumin 4.2 g/dl (3.5-5.0) 05/23/25 22:08
Diagnostic Results:�as per HPI�
Lumbar MRI- Chronic degenerative changes of the lumbar spine. At L4-L5, mild bilateral recess stenosis and minimal left neuroforaminal stenosis. At L5-S1, mild to moderate right lateral recess and right neuroforaminal stenosis. Similar appearance
compared to the lumbar spine MRI from 11/14/2024. No clear MRI evidence for left-sided nerve root impingement to explain the patient's left radicular symptoms.
�
Assessment: 74-year-old female with PMH of prior laminectomy 10 years ago presented with intractable acute left lower extremity pain unresponsive to current pain regiment and associated with spasms that has affected her ADL and ambulatory
dysfunction.
�
Plan�
PM&R�PT/OT to increase independence with ADLs, improve balance, coordination, endurance, strength, mobility, community reintegration, decreased burden of care on others and family education.�
Left hamstring myofascial pain: This pain appears to be from muscle spasm. Upon further questioning notes that patient had been going up and down a stepstool cleaning her closet and dusting which is abnormal activity for her. Patient
limits her bending and movement in the low back with concern of causing further pain or trauma to the area but does recall doing this when returning home from [place]. Could be the inciting event.
-This does not appear to be radicular in nature unless radicular components are causing muscle spasm
---Current regimen acetaminophen 1000 mg 3 times daily, oxycodone, IV Dilaudid.� Lidoderm patch, Toradol 10mg IV, gabapentin 200 mg 3 times daily
--- Discussed with patient and at length. Will trial Valium 5 mg 3 times daily. Patient takes Valium 5 mg at night and tolerates it without significant sedation. Will also use Bengay like cream and continue with heat. Instructed patient
she can do self stretching and massage to also loosen up the area. Continue with physical therapy.
-Increasing range of motion and continued stretching of the area is going to be very important to prevent this from happening in the future. Likely with decrease range of motion and decreased muscle mass secondary to patient's hesitancy to do too
much exercise given her prior back concerns and fear of aggravating her prior disc concerns.
-Follow up with OP interventional pain management, pain control, OP physical and aqua therapy, trigger injections, stretching exercises.
HTN: Lisinopril 5 mg daily, spironolactone 50 mg daily
Psych: Psychology consult.� Monitor mood, medications as needed.� Takes Valium 5 mg at night for sleep and anxiety. Remeron more helpful for sleep.
Skin: monitor for pressure sores/rashes/lesions.�
Anemia: Hgb�9.8
FEN: BUN 20, creatinine 0.7
Bowel: recommend Colace and Senna, PRN bisacodyl.�
Bladder: Time void, PVRs, PRN straight cath.�
DVT Prophylaxis: mechanical, not on chemoprophylaxis as patient is able to move around and ambulate. If pain limits activity consider Lovenox 40 mg at night.
Pulmonary: Incentive spirometry��
Safety: Continue to reinforce assistance with all transfers.�
Code Status:� Full code
Dispo�(date/plan/equipment needs): Home with family care.� Social history reviewed.�
Functional and Medical Goals:�Modified Independent with ADL�s, ambulation, transfers�
Discharge Destination:�Will benefit from outpatient physical therapy program
A total of 60 minutes were spent with the patient preparing for the evaluation, obtaining history, performing examination and evaluation, counseling, data review, case management, care coordination, order clerk, and EMR documentation.
�Thank you for allowing me to care for your patient. Please contact me with any questions or concerns.
Consultation
-
Date/Time Consultation Performed: 05/25/25
Performing Provider: Roberta Veliz/Dr. Aayush Rasmussen
Reason for Consultation: Left leg pain
[2025-05-25] MEDS: MIRALAX PO (09:01)
[2025-05-25] MEDS: FLUSH (NSS) 1 FLUSH IV (10:36)
--- NOTE | 2025-05-25 10:47 | W.PN.HOSP.TC ---
Today's Communication/Plan
-
Increase oxycodone
Increase Dilaudid
Will require outpatient pain management close follow-up
MRI pending
Physiatry evaluation
Outpatient therapy
Assessment / Plan
Assessment / Plan
Patient is a 74y F with PMH significant for lumbar DDD and chronic pain who presents to ED complaining of LLE radicular / sciatic pain for about one week. Patient denies any injury, trauma, heavy lifting, increased activity. Pain radiates
across the L buttocks and into the posterior L thigh and has been quite severe.
Patient took a Medrol dose pack at home with no relief in her symptoms.
She has a prior history of DDD s/p surgery / laminectomy many years ago.
Left lower extremity posterior pelvis radiating to left knee
Intractable Pain secondary to the above
Lumbar DDD
-piriformis syndrome seems most likely
-MR lumbar-Chronic degenerative changes of the lumbar spine. At L4-L5, mild bilateral recess stenosis and minimal left neuroforaminal stenosis. At L5-S1, mild to moderate right lateral recess and right neuroforaminal stenosis. Similar appearance
compared to the lumbar spine MRI from 11/14/2024. No clear MRI evidence for left-sided nerve root impingement to explain the patient's left radicular symptoms.
-Will order MR pelvis
-Toradol IV
-new start Gabapentin (patient had been on Lyrica in past)
-off steroids.
-oxycodone PRN with IV Dilaudid PRN breakthrough pain
-CHEMISTRY INSTRUCTOR Tizanidine PRN
-PMNR eval pending
-Will need to follow up with her primary pain management and neurosurgery
Benign Hypertension
-CHEMISTRY INSTRUCTOR Lisinopril
-CHEMISTRY INSTRUCTOR Spironolactone
Chronic Anemia
MGUS
Insomnia
DVT PPx SCD
GI PPx - Protonix while on steroids and Toradol
FULL CODE
d/w with spouse at bedside in details.
PT/OT-Outpatient therapy
Anticipated Discharge: Within 24 hours
Subjective/Interval History
-
Date of Service: May 25, 2025
states of severe Left posterior pelvis/leg pain
Objective Data
-
Labs:
Laboratory Results
05/25/25
05:27
WBC 7.0
Hgb 9.8 L
Hct 28.0 L
Plt Count 211
PT 13.5
INR 1.00
Sodium 135
Potassium 4.0
Chloride 105
Carbon Dioxide 27
BUN 20 H
Creatinine 0.7
Glucose 88
Calcium 8.9
Vital Signs:
Vital Signs
Temp Pulse Resp BP Pulse Ox
98.2 F 77 16 141/72 98
05/25/25 07:10 05/25/25 08:22 05/25/25 07:10 05/25/25 08:22 05/25/25 08:15
I&O
05/24/25 05/25/25 05/26/25
06:59 06:59 06:59
Intake Total 960 / 960 780 / 780
Balance 960 / 960 780 / 780
Physical Exam
-
General: Other (appears in pain )
HEENT: Atraumatic, Nose Appears Normal and Ears Appear Normal
Respiratory: Clear to Auscultation; Negative Wheezes
Cardiac: Regular Rhythm and S1/S2
GI: Soft and Nontender
Musculoskeletal: No Edema and Other (straight leg test positive; [place] test positive (extension and internal rotation of hip))
Skin: Warm and Dry; Negative Rash
Neuro: AO x 3
Psych: Calm
Data Reviewed
-
Total Time Spent with Patient (in minutes): 55
--- NOTE | 2025-05-25 11:18 | CM ---
Addendum entered by Farooq Fitzpatrick 05/25/25 16:22:
Per CM documentation from yesterday , VIDAL letter was reviewed with pt's yesterday.
This CM reviewed OBS status with pt an her today, VIDAL letter signed by the pt, placed on chart, pt has a copy.
Original Note:
CM following re: discharge planning.
Reviewed pt's chart, met with pt and pt's at bedside.
PT and OT evaluations noted - out[patient PT/OT recommended. Both pt and her are aware, expressed their agreement. pt stated she went to a few outpatient therapies in the past and she thinks she will go to [facility].
Please provide to pt script for outpatient PT/OT
D/C plan: home with outpatient PT/OT and family support. to transport at discharge.
CM will follow with discharge plan updates as needed.
[2025-05-25 11:20] VITALS: BMI 17.1
[2025-05-25] MEDS: DILAUDID 0.75 MG IV (15:06)
[2025-05-25 15:15] VITALS: BP 168/98
[2025-05-25] MEDS: VALIUM 5 MG PO ×2 (16:31→21:10)
[2025-05-25] MEDS: BenGay-Like 1 APPLIC TOPICAL ×2 (17:43→21:10)
[2025-05-25] MEDS: REMOVE LIDOCAINE PATCH REMOVE (19:49)
[2025-05-25] MEDS: REMERON 30 MG PO (21:10)
[2025-05-25] MEDS: TYLENOL 1000 MG PO (21:10)
[2025-05-25 23:17] VITALS: BP 120/95
[2025-05-26] MEDS: DILAUDID 0.75 MG IV
[2025-05-26] MEDS: TORADOL 10 MG IV (02:36)
[2025-05-26 07:15] VITALS: BP 108/94
[2025-05-26] MEDS: ALDACTONE 50 MG PO (07:28)
[2025-05-26] MEDS: PROTONIX 40 MG PO (07:28)
[2025-05-26] MEDS: TYLENOL 1000 MG PO (07:29)
[2025-05-26] MEDS: ZESTRIL PO (07:29)
[2025-05-26] MEDS: NEURONTIN 200 MG PO (07:29)
[2025-05-26] MEDS: VALIUM 5 MG PO (07:29)
[2025-05-26] MEDS: BenGay-Like TOPICAL ×2 (07:31→13:03)
[2025-05-26] MEDS: MIRALAX PO (07:32)
[2025-05-26] MEDS: LIDOCAINE 4% PATCH TOPICAL (07:32)
[2025-05-26] MEDS: ROXICODONE 10 MG PO (11:29)
[2025-05-26] MEDS: IMODIUM 4 MG PO (11:29)
--- NOTE | 2025-05-26 11:51 | CM ---
CM following re: discharge planning.
Reviewed pt's chart, met with pt and pt's at bedside.
Per UR CM patient is upgraded to inpatient level of admission. IMM reviewed, placed on chart, pt has a copy.
PT and OT evaluations noted - outpatient PT/OT recommended. Pt stated she went to a few outpatient therapies in the past and she thinks she will go to [facility] outpatient therapy.
Please provide to pt script for outpatient PT/OT
D/C plan: home with outpatient PT/OT and family support. to transport at discharge.
CM will follow with discharge plan updates as needed.
--- NOTE | 2025-05-26 13:02 | W.PN.HOSP.TC ---
Today's Communication/Plan
-
Continue with Valium
Bengay
Follow-up outpatient with supervisor painting
Also recommend to follow-up with PCP
Increase fiber intake
Assessment / Plan
Assessment / Plan
Patient is a 74y F with PMH significant for lumbar DDD and chronic pain who presents to ED complaining of LLE radicular / sciatic pain for about one week. Patient denies any injury, trauma, heavy lifting, increased activity. Pain radiates
across the L buttocks and into the posterior L thigh and has been quite severe.
Patient took a Medrol dose pack at home with no relief in her symptoms.
She has a prior history of DDD s/p surgery / laminectomy many years ago.
Left lower extremity posterior pelvis radiating to left knee
Intractable Pain secondary to the above
Lumbar DDD
- Likely secondary to left hamstring myofascial pain
-MR lumbar-Chronic degenerative changes of the lumbar spine. At L4-L5, mild bilateral recess stenosis and minimal left neuroforaminal stenosis. At L5-S1, mild to moderate right lateral recess and right neuroforaminal stenosis. Similar appearance
compared to the lumbar spine MRI from 11/14/2024. No clear MRI evidence for left-sided nerve root impingement to explain the patient's left radicular symptoms.
- MRI pelvis noted and discussed with patient's spouse. Results were printed and given a copy to patient and spouse.
-Toradol IV
- Valium 3 times daily seems to be helping patient. Bengay as needed if patient can tolerate.
-off steroids.
- Continue with hydrocodone at home.
-EVENT EXECUTIVE Tizanidine PRN
- Outpatient evaluation with supervisor painting and outpatient therapy recommended
Diarrhea secondary to acute colitis likely secondary to overflow diarrhea from opioids
- No nausea no vomiting. Tolerating diet
- Afebrile. Blood pressure has been stable
- Patient states she would like to go home. WBC stable. patient is afebrile. No episode of hypotension. Blood pressure has been stable. Tolerating diet. Doubt ischemic. Doubt infectious. Likely heavy stool burden due to IV narcotics received
earlier in the hospitalization. Recommended to decrease opioid dependent. This was all discussed with patient and spouse who is a physician/radiologist. Spouse would like to take patient home and he understand the symptoms to look after if with
any change in patient condition and to return to ER which would include abdominal pain, nausea or vomiting. Avoid further Imodium. Avoid Pepto-Bismol.
Benign Hypertension
-EVENT EXECUTIVE Lisinopril
-EVENT EXECUTIVE Spironolactone
Chronic Anemia
MGUS
Insomnia
DVT PPx SCD
GI PPx - Protonix while on steroids and Toradol
FULL CODE
d/w with spouse at bedside in details.
PT/OT-Outpatient therapy. Prescription on chart.
More than 30 minutes spent in discharge including
Final examination of the patient
Summarizing hospital stay
Instructions for continuing care to all relevant caregivers
Preparation of discharge records, prescriptions, and referral forms
Total time spent (in minutes): 55
Anticipated Discharge: Today
Subjective/Interval History
-
Date of Service: May 26, 2025
Patient states left hip posterior pain has improved
States of multiple loose bowel movements yesterday and overnight into this morning
No abdominal pain
No nausea no vomiting
Tolerating liquid/diet
Denies lightheadedness dizziness
Objective Data
-
Labs:
Laboratory Results
05/26/25
12:53
WBC Pending
Hgb Pending
Hct Pending
Plt Count Pending
Sodium Pending
Potassium Pending
Chloride Pending
Carbon Dioxide Pending
BUN Pending
Creatinine Pending
Glucose Pending
Calcium Pending
Vital Signs:
Vital Signs
Temp Pulse Resp BP Pulse Ox
97.5 F 96 16 108/84 99
05/26/25 07:15 05/26/25 07:29 05/26/25 07:15 05/26/25 07:29 05/26/25 07:15
I&O
05/25/25 05/26/25 05/27/25
06:59 06:59 06:59
Intake Total 960 / 960 1740 / 1740
Balance 960 / 960 1740 / 1740
Physical Exam
-
General: No Apparent Distress
HEENT: Atraumatic, Nose Appears Normal and Ears Appear Normal
Respiratory: Non Labored Respirations; Negative Wheezes
GI: Soft and Nondistended
Musculoskeletal: No Edema and Other (straight leg test positive; [place] test positive (extension and internal rotation of hip))
Skin: Warm and Dry; Negative Rash
Neuro: Awake, Alert, Oriented, AO x 3, No Motor Deficits and Nonfocal/Grossly Intact; Negative Slurred Speech or Facial Droop
Psych: Calm
[2025-05-26 13:25] LABS: Hematocrit 34.4 % (37.0-47.0); Hemoglobin 11.6 g/dL (12.0-16.0); Mean Corp Hgb Conc. 33.7 g/dL (33.0-37.0); Mean Corpuscular Volume 91.5 fL (81.0-99.0); Nucleated Red Blood Cells % 0 %; Platelet Count 242 10^3/uL (130-400); Red Cell Dist. Width 12.2 % (11.5-14.5)
[2025-05-26 14:02] LABS: Blood Urea Nitrogen 24 mg/dl (7-17); Calcium 9.3 mg/dl (8.4-10.2); Carbon Dioxide 24 mmol/L (22-30); Chloride 106 mmol/L (98-107); Estimated Creatinine Clearance 38 ml/min; Glucose 153 mg/dl (70-99); Potassium 4.0 mmol/L (3.5-5.1); Sodium 137 mmol/L (135-145); eGFR > 60.00
--- NOTE | 2025-05-26 14:29 | W.DCSUMMARY ---
Discharge Summary
Discharge Data
Date of Admission: 05/26/25
Date of Discharge: 05/26/25
-
Pending Results: No
Hospital Course
73-year-old female past medical history of hypertension, chronic anemia, MGUS, insomnia, lumbar degenerative disc disease was coming in with complaint of severe left lower extremity radicular pain. Patient took a Medrol dose pack at home with no
relief in her symptoms. She has a prior history of DDD s/p surgery / laminectomy many years aGo. MR lumbar-Chronic degenerative changes of the lumbar spine. At L4-L5, mild bilateral recess stenosis and minimal left neuroforaminal stenosis. At L5-S1,
mild to moderate right lateral recess and right neuroforaminal stenosis. Similar appearance compared to the lumbar spine MRI from 11/14/2024. No clear MRI evidence for left-sided nerve root impingement to explain the patient's left radicular symptoms.
On admission patient was started on multiple pain medication regimen including IV Dilaudid and Toradol. Patient was eval by physical and Occupational Therapy. Patient was also evaluated by physiatry and patient was started on Valium and Bengay.
Patient's symptoms significantly improved. Seems patient had left hamstring myofascial pain. patient underwent MRI of the pelvis which showed Severe discogenic degenerative disease along the right side of L5/S1. Small central disc herniation at
L4/L5 causing mild central canal stenosis. Mild insertional tendinosis of the right gluteus minimus tendon. Large partial full-thickness cartilage defect over the right femoral head. Moderate distention of the urinary bladder. Large amount of fecal
material throughout the colon. Circumferential wall thickening and submucosal edema in the descending colon suggesting an ACUTE COLITIS. Small amount of peritoneal fluid in the pelvis. Patient states she would like to go home. WBC stable. patient
is afebrile. No episode of hypotension. Blood pressure has been stable. Tolerating diet. Doubt ischemic. Doubt infectious. Likely heavy stool burden due to IV narcotics received earlier in the hospitalization. Recommended to decrease opioid
dependent. This was all discussed with patient and spouse who is a physician/radiologist. Spouse would like to take patient home and he understand the symptoms to look after if with any change in patient condition and to return to ER which would
include abdominal pain, nausea or vomiting. Avoid further Imodium. Avoid Pepto-Bismol. I did offer for patient to stay overnight however patient insisting on going home and spouse agreed to patient take him home. Spouse also did not want patient
to be stay in the hospital for further management of colitis. Spouse was also given MRI of the pelvis report. Recommended to follow-up with primary doctor.
Portions of this chart may have been created with voice recognition software.� Occasional wrong word or �sound alike� substitutions may have occurred due to the inherent limitations of voice recognition software.
Discharge Plan
-
Patient Disposition: Home (Routine Discharge)
Discharge Diagnosis/Procedures: Left hamstring myofascial pain
Acute descending colitis likely secondary to opioids
Condition: Fair
Diet: Regular
Activity: As tolerated
Driving Restrictions: As prior to admission
Activity Restrictions/Additional Instructions:
Try to limit opioids/narcotics. Recommend increase fiber intake. Follow-up with primary doctor. Recommend taking laxatives to help with severe constipation and to hold it if it multiple loose bowel movements a day.
Follow-up with your primary sole painter.
If with episode of nausea or vomiting or abdominal pain recommend return to ER.
Referrals:
Amy Ulloa, [Family Provider, Internal Medicine] - in less than 1 week
Prescriptions:
New
diazepam 5 mg Tablet
5 mg PO TID Qty: 30 0RF
Analgesic [place] (m.salic-menth) 15-10 % Cream
1 applic topical BID Qty: 28 0RF
sennosides-docusate sodium [2-in-1 Laxative] 8.6-50 mg tablet
1 tab-cap PO HS Qty: 10 0RF
Continued
tramadol 50 mg Tablet
50 mg PO BID PRN (Reason: pain)
mirtazapine 30 mg Tablet
30 mg PO DAILY
lisinopril 5 mg Tablet
5 mg PO DAILY
spironolactone 50 mg Tablet
50 mg PO DAILY
hydrocodone-acetaminophen 10-300 mg Tablet
1 tab PO Q6H PRN (Reason: pain)
Discontinued
tizanidine 4 mg Tablet
4 mg PO BID PRN (Reason: pain)
Discharge Orders:
Discharge Patient (As Directed); Ordered 05/26/25
Ordered By: Checo Reilly
Discharge Date and Time
Discharge Date/Time: 05/26/25 15:23
Print Language: BRAZILIAN
[2025-05-26 15:07] VITALS: BP 138/68
--- NOTE | 2025-05-26 16:36 | W.PN.REHAB ---
Today's Communication / Plan
-
Continue with Valium, stop Bengay cream secondary to intolerance. Continue modalities, stretching, massage with outpatient follow-up to increase range of motion and decrease myofascial pain/spasm.
Assessment/Function
-
Assessment:
Physical Exam:�
General Appearance/Observation: thin female in no apparent distress, but looks uncomfortable lying in bed.�
Pain/Comfort Assessment: LLE pain improved at 7/10 improved to 4/10 after medications, better with medications.
Mood/Affect: Less anxious
Integumentary/Operative Site:�No lesions over the course of exam.
�
Eyes: Conjunctiva/Lids: normal��� Pupils: pupils equal round
Cardiovascular: Heart: regular, no murmur�
Genitourinary: No Kim�
Extremities:�Edema: None�Cyanosis: None�Trophic�changes: None
�
Neurology Exam:
Orientation: Alert, Oriented to self, place, time
Memory: intact
Comprehension: intact
Two step command: intact
Cranial Nerves:
�� CN VII:�Facial movement: Symmetric
�� CN VIII:�Hearing: Normal
�� CN IX/X:�Speech & swallow: Normal
Sensory:
�� Light touch: Intact in bilateral lower extremities
�
SLR- negative on the left
Musculoskeletal:Motor: (Manual muscle scale 0-5)�
Muscle SA EF WE EE FF FA HF KE DF EHL PF
Right� 5 5 5 5 5 4 5 5 5
Left 5 5 5 5 5 *3+ 4 5 5
*pain�
Tone: Normal in all extremities�
Range of Motion: Passively within functional limits in all extremities, does have some decreased range of motion at bilateral hips/knees left greater than right particularly with tight hamstrings
-Has slight pain and minimal palpable spasm with triggering of muscle spasms on palpation of the left hamstrings, particularly near the origin of the ischial tuberosity. Significantly improved from yesterday, much less spasm, only slightly tender.
Patient did not jump when palpating.
Function:
Bed Mobility: Supervision
Transfers: Supervision
Ambulation: Supervision ambulating 50 feet x 2 without device
Steps:
ADL's: Independent
Plan
-
Assessment: 74-year-old female with PMH of prior laminectomy 10 years ago presented with intractable acute left lower extremity pain unresponsive to current pain regiment and associated with spasms that has affected her ADL and ambulatory dysfunction
�
Plan�
PM&R�PT/OT to increase independence with ADLs, improve balance, coordination, endurance, strength, mobility, community reintegration, decreased burden of care on others and family education.�
Left hamstring myofascial pain: This pain appears to be from muscle spasm possibly from going up and down a step stool.
-This does not appear to be radicular in nature unless radicular components are causing muscle spasm
---Current regimen acetaminophen 1000 mg 3 times daily, oxycodone, IV Dilaudid.� Lidoderm patch, Toradol 10mg IV, gabapentin 200 mg 3 times daily
--- Improved with Valium 5 mg 3 times daily. -Has dramatic decrease in amount of muscle spasm in the hamstrings. Still with some spasm and tenderness particularly at the origin of the ischial tuberosity. Would continue with Valium, heat, stretch
as demonstrated, massage. Consider investing in a massage gun that she can control in order to help break up further muscle spasm. Suggest outpatient physical therapy program for slow progression of activity including modalities as well as TENS in
order to help with the myofascial pain and hopefully increase range of motion. Discussed this with her and her . She did not do well with the Bengay cream due to the pain with initial application. She can try lidocaine gel or other muscle
creams.
-Follow up with OP interventional pain management, pain control, OP physical and aqua therapy, trigger injections, stretching exercises.
�
Subjective
-
Patient seen and examined today. Does feel a bit better with the leg pain today. Was up at night and is very tired from multiple episodes of diarrhea. She tried taking Bengay cream but the burning sensation was too intense for her so she had to
wipe it off. Denies any fevers, chills, chest pain, shortness of breath, nausea, vomiting, abdominal pain, dysuria. Tolerating therapy.
Vital Signs / Labs
-
Vital Signs and Labs:
Temp Pulse Resp BP Pulse Ox
98.0 F 101 16 138/68 100
05/26/25 15:07 05/26/25 15:07 05/26/25 15:07 05/26/25 15:07 05/26/25 15:07
05/26/25 13:11
05/26/25 13:11
05/26/25
13:11
RBC 3.76 L
Hgb 11.6 L
Hct 34.4 L
Absolute Neuts (auto) 8.8 H
Absolute Lymphs (auto) 0.7 L
Neutrophils % 88.7 H
Lymphocytes % 6.9 L
BUN 24 H
Glucose 153 H
== END 2025-05-26 15:23 | disposition home or self-care (01) | DRG 556 ==
LOC: 2 SOUTH 09:15
PROVIDERS: Physician Assistant Medical; Student in an Organized Health Care Education/Training Program; ADMITTING PHYSICIAN Hospitalist; ATTENDING PHYSICIAN Hospitalist; CONSULT PHYSICIAN Physical Medicine & Rehabilitation; EMERGENCY PHYSICIAN Student in an Organized Health Care Education/Training Program; FAMILY PHYSICIAN Internal Medicine
DX: M79.18 Myalgia, other site (principal); K52.1 Toxic gastroenteritis and colitis; G57.02 Lesion of sciatic nerve, left lower limb; M51.16 Intervertebral disc disorders with radiculopathy, lumbar region; M47.26 Other spondylosis with radiculopathy, lumbar region; G89.29 Other chronic pain; F32.A Depression, unspecified; I10 Essential (primary) hypertension; D64.9 Anemia, unspecified; F41.9 Anxiety disorder, unspecified; N32.89 Other specified disorders of bladder; E11.9 Type 2 diabetes mellitus without complications; D47.2 Monoclonal gammopathy; G47.00 Insomnia, unspecified; G43.909 Migraine, unspecified, not intractable, without status migrainosus; T40.2X5A Adverse effect of other opioids, initial encounter; Y92.239 Unspecified place in hospital as the place of occurrence of the external cause; Z88.1 Allergy status to other antibiotic agents; Z87.442 Personal history of urinary calculi
CPT/HCPCS: 72148; 72195; 80048; 80053; 85025; 85027; 85610; 96374; 96375; 97162; 97166; 97535; 99284

== ENCOUNTER → 2025-06-23 14:15 | Outpatient (REF) | payer MEDICARE, OTHER, SELFPAY | LOC: HWWDC 14:15 | PROVIDERS: ATTENDING PHYSICIAN Internal Medicine Endocrinology, Diabetes & Metabolism; FAMILY PHYSICIAN Internal Medicine; REFERRING PHYSICIAN Obstetrics & Gynecology Gynecology | DX: M81.0 Age-related osteoporosis without current pathological fracture (principal); Z12.31 Encounter for screening mammogram for malignant neoplasm of breast | CPT/HCPCS: 77063; 77067; 77080 ==

== ENCOUNTER → 2025-07-30 13:05 | Outpatient (REF) | payer MEDICARE, OTHER, SELFPAY ==
[2025-07-30 14:04] LABS: Hematocrit 30.1 % (37.0-47.0); Hemoglobin 10.2 g/dL (12.0-16.0); Mean Corp Hgb Conc. 33.9 g/dL (33.0-37.0); Mean Corpuscular Volume 92.3 fL (81.0-99.0); Nucleated Red Blood Cells % 0 %; Platelet Count 196 10^3/uL (130-400); Red Cell Dist. Width 11.7 % (11.5-14.5); Reticulocyte Count 1.0 % (0.4-2.8)
[2025-07-30 15:09] LABS: ALT (SGPT) 28 U/L (0-35); AST (SGOT) 35 U/L (14-36); Albumin 4.8 g/dl (3.5-5.0); Alkaline Phosphatase 47 U/L (38-126); Blood Urea Nitrogen 25 mg/dl (7-17); Iron 104 ug/dl (37-170); LDH 223 U/L (120-246); Total Protein 7.5 g/dl (6.3-8.2)
[2025-07-30 15:19] LABS: Total Iron Binding Capacity 356 ug/dl (265-497)
[2025-07-30 15:37] LABS: Ferritin 26.0 ng/ml (11.1-264.0)
[2025-07-30 16:05] LABS: Folate > 20.0 ng/ml (2.76-20); Vitamin B12 844 pg/ml (239-931)
== END ==
LOC: RAD 13:05
PROVIDERS: ATTENDING PHYSICIAN Internal Medicine Hematology & Oncology; FAMILY PHYSICIAN Internal Medicine
DX: D47.2 Monoclonal gammopathy (principal); R61 Generalized hyperhidrosis; R93.5 Abnormal findings on diagnostic imaging of other abdominal regions, including retroperitoneum; R63.4 Abnormal weight loss; D64.9 Anemia, unspecified; E53.8 Deficiency of other specified B group vitamins
CPT/HCPCS: 36415; 71260; 74177; 80076; 82565; 82607; 82668; 82728; 82746; 83010; 83540; 83550; 83615; 84439; 84443; 84520; 85025; 85045; 85652; Q9967

== ENCOUNTER 2025-09-03 09:59 | Inpatient (IN) | payer MEDICARE, OTHER, SELFPAY ==
[2025-09-02] VITALS (8 sets, daily range): BP systolic 121–145; BP diastolic 58–78; BMI 17.1; BMI 17.0
[2025-09-02] MEDS: TORADOL 15 MG IV ×2 (15:45→20:54)
[2025-09-02] MEDS: PERCOCET 5/325 2 TABLET PO (15:47)
[2025-09-02] MEDS: VALIUM INJECTION 2 MG IV ×2 (15:48→20:04)
[2025-09-02 15:51] LABS: Hematocrit 33.0 % (37.0-47.0); Hemoglobin 10.8 g/dL (12.0-16.0); Mean Corp Hgb Conc. 32.7 g/dL (33.0-37.0); Mean Corpuscular Volume 94.3 fL (81.0-99.0); Platelet Count 208 10^3/uL (130-400); Red Cell Dist. Width 11.9 % (11.5-14.5)
[2025-09-02] MEDS: NSS 500 IV (15:51)
[2025-09-02 16:00] LABS: Blood Urea Nitrogen 15 mg/dl (7-17); Calcium 9.9 mg/dl (8.4-10.2); Carbon Dioxide 27 mmol/L (22-30); Chloride 98 mmol/L (98-107); Estimated Creatinine Clearance 38 ml/min; Glucose 86 mg/dl (70-99); Magnesium 2.0 mg/dl (1.6-2.3); Potassium 4.8 mmol/L (3.5-5.1); Sodium 132 mmol/L (135-145); eGFR > 60.00
[2025-09-02 16:03] LABS: C-Reactive Protein < 5.00 mg/L (0.0-10.00)
--- NOTE | 2025-09-02 16:28 | ED.GENMED ---
History of Present Illness
General
Chief Complaint: Generalized Pain
Source: patient
Exam Limitations: none
Time Seen by Provider: 09/02/25 15:08
Nursing documentation reviewed up to this point in time: agreed with
History of Present Illness
History of Present Illness:
Patient with chronic back pain secondary to lumbar radiculopathy, currently under care of pain management, presents to ED secondary to worsening back/groin/leg pain over the past 2 to 3 days, despite taking her pain medication. Patient states that
she was admitted to the hospital in May for similar complaint, but today is far worse in terms of intensity. Denies fever or chills. Denies new trauma. Denies loss of sensation or weakness. Denies urinary or bowel incontinence.
Past History
Past History
ED Past Medical History: HTN, Psychiatric (depression) and Other (chronic low back pain)
Social History
Tobacco: Non-smoker
Personal:
Review of Systems
Review of Systems
Allergies reviewed?: Yes
All Other Systems: ROS reviewed and negative except as documented in HPI and ROS
Constitutional: Reports no symptoms
Respiratory: Reports no symptoms
Cardiac: Reports no symptoms
ABD/GI: Reports no symptoms
Musculoskeletal: Reports back pain
Skin: Reports no symptoms
Neurological: Denies weakness or numbness
Phy Exam
Physical Exam
Physical Exam:
Physical Exam
General: moderate painful distress, not acutely ill. afebrile. thin appearing
Head: nc/at. eomi
Neck: supple. normal range of motion. jvd
Heart: s1/s2 regular rate and rhythm
Lungs: no acute respiratory distress. clear bilaterally
Abdomen: normal bowel sounds. not tender. no distention
Back: no midline tenderness. mild diffuse lower back/buttock tenderness to palpation, without swelling
Neuro: alert and oriented x 3. no focal neurological deficits
Skin: no rash
Psychiatric: well kept. interactive and cooperative
Extremities: no edema. no calf tenderness
Course
Orders/Labs/Results
Orders:
Orders
09/02/25 14:45
Basic Metabolic Panel Urgent
CRP [C-Reactive Protein] Urgent
Complete Blood Count/No Diff Urgent
Free T4 Urgent
Comment: ADD ON
Magnesium Urgent
TSH Urgent
09/02/25 15:35
Ketorolac [Toradol] 15 mg IV NOW STA
Oxycodone/Acetaminophen [Percocet 5/325] 2 tablet PO NOW STA
diazePAM [Valium Injection] 2 mg IV NOW STA
09/02/25 15:37
0.9% Sodium Chloride 500 ml [Nss] 500 ml IV BOLUS
09/02/25 16:59
Urinalysis Reflex To Culture Urgent
Date Specimen was Collected: 09/02/25
Time Specimen was Collected: 16:57
Urine Microscopic Reflex Cult Urgent
Urine Culture Urgent
BHARATH Source: U
Specimen Description:
Date Specimen was Collected: 09/02/25
Time Specimen was Collected: 16:57
09/02/25 17:18
HYDROmorphone [Dilaudid] 0.5 mg IV NOW STA
09/02/25 19:08
HYDROmorphone [Dilaudid] 1 mg IV NOW STA
09/02/25 19:28
Add On- LAB Routine
Tests Added?: free T4
09/02/25 19:51
diazePAM [Valium Injection] 2 mg IV NOW STA
09/02/25 20:00
Admit/Transfer Patient As Directed
Co-Sign Provider:
Level of Care: Observation services
Assign to:: Medical/Surgical
Physician / Group: Maxine Mora
Diagnosis: acute on chronic back pain; pyriformis syndrome
09/02/25 20:01
PRN Pain Medication Management As Directed
May give lesser potent ordered pain med per pt: Yes
preference::
Protocol:: Medication orders for pain may be administered in a
manner that supports deferring to patient preference
when the pt is:
- Requesting an ordered lesser potent pain medication.
Least to most potent pain medications are defined
as: acetaminophen < NSAID < tramadol < opioids
(morphine, oxycodone, hydromorphone).
- Requesting a lesser dose of the same medication IF
ORDERED.
- Requesting a less intrusive route of administration
if both routes are prescribed by the provider (PO <
IV).
09/02/25 20:02
Code Status As Directed
Resuscitation Status: Full Code
09/02/25 20:21
Dexamethasone Sod Phosphate [Decadron] 4 mg IV NOW STA
09/02/25 21:00
Ketorolac [Toradol] 15 mg IV ONCE@2100 ONE
09/02/25 21:33
Acetaminophen [Tylenol] 650 mg PO Q4HPRN PRN
Bisacodyl [Dulcolax] 10 mg RECTAL [id number] PRN
HYDROmorphone [Dilaudid] 1 mg IV Q3HPRN PRN
HYDROmorphone [Dilaudid] 4 mg PO Q6H PRN severe pain
Ketorolac [Toradol] 15 mg IV Q8H
diazePAM [Valium Injection] 2 mg IV Q6HPRN PRN
09/02/25 21:33
Activity As Directed
Activity Level: As Tolerated
Pneumatic Compression Sleeves As Directed
Type: Knee high
Vital Signs As Directed
Frequency: Per unit guidelines
Pt Eval And Treat Routine
Activity Level: As Tolerated
DX Deep Vein Thrombosis Video Routine
DX Deep Vein Thrombosis Video Routine
09/02/25 22:00
Docusate W/Senna [Senokot-S] DOSE tablet PO HS
Mirtazapine [Remeron] 30 mg PO HS
09/03/25 Breakfast
Regular
At Your Request: Limited Participation
Does patient need a safe tray?: No
Basic Metabolic Panel IN AM
Complete Blood Count/No Diff IN AM
Magnesium IN AM
09/03/25 08:00
Dexamethasone Sod Phosphate [Decadron] 4 mg IV Q12H
Lisinopril [Zestril] 5 mg PO DAILY
Polyethylene Glycol Powder [Miralax] 17 grams PO DAILY
Spironolactone [Aldactone] 50 mg PO DAILY
Abnormal Lab Results
09/02/25 09/02/25
14:45 16:59
RBC 3.50 L 10^6/uL
(4.20-5.40)
Hgb 10.8 L g/dL
(12.0-16.0)
Hct 33.0 L %
(37.0-47.0)
MCHC 32.7 L g/dL
(33.0-37.0)
MPV 11.1 H fL
(7.4-10.4)
Sodium 132 L mmol/L
(135-145)
TSH 0.23 L uIU/ml
(0.47-4.68)
Ur Occult Blood Reflex 2+ A
(Negative)
Leukocyte Esterase Rfl 2+ A
(Negative)
Urine RBC 3-6 A /HPF
(0-2)
Urine WBC (Reflex) 26-30 A /HPF
(0-5)
Urine Bacteria (Reflex) Few A
(Negative)
09/02/25 14:45
09/02/25 14:45
Vital Signs
Initial and Last Documented VS:
Initial Vital Signs
Temp Pulse Resp BP Pulse Ox
97.6 F 85 18 136/78 96
09/02/25 13:02 09/02/25 13:02 09/02/25 13:02 09/02/25 13:02 09/02/25 13:02
Last Documented Vital Signs
Temp Pulse Resp BP Pulse Ox
97.6 F 74 19 126/65 99
09/02/25 13:02 09/02/25 21:23 09/02/25 21:23 09/02/25 21:23 09/02/25 21:23
MDM/Problems Addressed
MDM/Problems Addressed:
Patient with persistent pain despite treatment with multiple pain medications. As such, patient will be admitted for further evaluation and treatment, including potential imaging studies, if symptoms persist. At this time, patient is
neurologically intact, and as such, no indications for urgent imaging study.
*Pulse Oximetry
SaO2: 99
Oxygen Mode of Delivery: Room air
Patient hypoxic: no
*Critical Care Note
Total Time (30-74mins, 75-104mins- exclusive of procedures): Not Applicable
ED Attending Note
-
Portions of this chart may have been created with voice recognition software.� Occasional wrong word or��sound alike� substitutions may have occurred due to the inherent limitations of voice recognition software.
Discharge Plan
Departure
Patient Disposition: Admit
Date of Disposition: 09/02/25
Time of Disposition: 19:10
Presentation/result/management discussed w/ accepting MD/DO: Hospitalist
Discharge Problem:
Intractable back pain
Interventions
Interventions:
*Risk Screen - Suicide Last Done: 09/02/25 13:02
*General Assessment Last Done: 09/02/25 13:02
*Neglect/Abuse Screening Last Done: 09/02/25 14:40
*ED- Fall Risk Assessment Last Done: 09/02/25 21:33
*ED COVID-19 Vaccine History Last Done: 09/02/25 14:36
*ED Influenza Vaccine History Last Done: 09/02/25 14:36
*Nursing Disposition Last Done: 09/02/25 21:33
Discharge Date and Time
Discharge Date/Time: 09/02/25 21:34
[2025-09-02 16:34] LABS: TSH 0.23 uIU/ml (0.47-4.68)
[2025-09-02 17:12] LABS: Urine Character Clear (Clear)
[2025-09-02 17:22] LABS: Urine Squamous Cell >30 /LPF (Few)
[2025-09-02 17:23] LABS: Urine White Cell 26-30 /HPF (0-5)
[2025-09-02] MEDS: DILAUDID 0.5 MG IV (17:29)
--- NOTE | 2025-09-02 19:17 | HPS.HSE ---
Family Physician
-
Family Physician: Amy Ulloa
Chief Complaint
-
back pain
History of Present Illness
Ms. Moris Kimbrough is a 74 yo woman with hx essential HTN, MGUS, lumbar DDD with hx lumbar laminectomy years ago, chronic pain and opiate dependence, admission May 2025 for severe LLE radicular pain presents today with similar complaints.
During last admission patient was given IV Dilaudid and IV Toradol. She was started on Valium but per this was no longer approved by insurance. History obtained from patient and , who is a radiologist. Since last admission pain had
been better controlled but over past three weeks it has been worse. She has been started on Tizanidine and oral Dilaudid replaced [place]. She was due to get fitted for a spine stimulator next week. Today the pain was so severe so patient came to
the ER. She describes bilateral pain stretching across upper buttocks into groin and leg. No numbness/tingling. Pain is better when standing, she has no weakness. No incontinence. She is chronically constipated.
No fevers/chills. No nausea/vomiting/diarrhea. She has decreased appetite in the setting of significant pain.
Medical History
Past Medical History
Past Medical History: Reports Other
Additional Past Medical History:
Essential Hypertension
MGUS
Chronic Anemia
Chronic Low Back Pain
Insomnia
Migraine Headaches
Past Surgical History: Reports Other
Additional Past Surgical History:
L5-S1 Discectomy
Section
Social History
Tobacco: Non-smoker
Personal:
Living: With Family
Family History
Family History: Not pertinent
Allergies / Home Medications
Allergies reflects when Allergies were last updated in [facility].
Home Medications with original date entered in [facility]
Allergy/Medication List:
*awaiting med rec
Review of Systems
-
History Source: Patient
A 12 point ROS was completed and negative except as noted: Yes
Physical Exam
Vital Signs
Vital Signs
Temp Pulse Resp BP Pulse Ox
97.6 F 72 20 126/78 98
09/02/25 13:02 09/02/25 17:28 09/02/25 17:28 09/02/25 17:28 09/02/25 17:28
Physical Exam
General: Other (patient frail appearing and appears in pain )
HEENT: PERRLA
Respiratory: Clear; No Wheezes
Cardiac: S1/S2 and Regular Rhythm
GI: Soft and Non Tender
Musculoskeletal: Other (mild spine spine discomfort over sacrum. pain exacerbated with hip flexion and external rotation. 5/5 strength lower extremities, she was standing during entire interview. )
Skin: Warm and Dry; No Rash
Neuro: AO x 3
Psych: Calm
Laboratory Results
-
09/02/25 14:45
09/02/25 14:45
Data Reviewed
-
Diagnostic Radiology: Report Reviewed by me
Lab Data: Labs Reviewed by me
Impression/Plan
-
Ms. Moris Kimbrough is a 74 yo woman with hx essential HTN, MGUS, lumbar DDD with hx lumbar laminectomy years ago, chronic pain and opiate dependence, admission May 2025 for severe LLE radicular pain presents today with similar complaints.
Triage VS: T 97.6, P 85, RR 18, BP 136/78, SpO2 96%
LABS: WBC 7.4, Hg 10.8, PLT 208, Na 132, K+ 4.8, CO2 27, BUN 15, Cr 0.8, Mag 2.0, CRP < 5, TSH 0.23
MAR: IV Valium, IV Dilaudid, IV Toradol, IVF, Percocet
Acute on chronic back pain
LLE Radiculopath, hx LDDD s/p lumbar laminectomy, hx Pyriformis syndrome
Intractable Pain secondary to the above
Opiate Dependence
-patient had a lumbar spine MRI 05/24/25; pelvis MRI 05/26/25 - which showed severe discogenic degenerative disease along the right side of L5/S1; small central disc herniation L4/L5. She was evaluated by PM&R; clinically appears patient has
Pyriformis syndrome. She had been treated with oral steroids, steroid injection, muscle relaxant in past without success
-patient reporting flare of chronic pain, now bilateral symptoms stating worse than prior. Her pain regimen has recently been increased as outpatient to Hydromorphone 4mg PO q6hour PRN; addition of Tizanidine
-admit to med/surg, observation
-standing IV Toradol
-continue [employer] Dilaudid 4mg PO q6hour PRN with 1mg IV q3 hour PRN breakthrough pain
-additional IV Valium now, continue IV Valium PRN (hold [employer]INE SUR[employer]YOR Tizanidine while giving Valium)
-will trial steroids - start with Decadron 4mg q 12
-PT consult
-team to consider touching base with patient's pain specialist, Dr. Domínguez tomorrow; she was in process of obtaining spine stimulator
Benign Hypertension
-MARINE SUR[employer]YOR Lisinopril
-MARINE SUR[employer]YOR Spironolactone
Chronic Anemia
MGUS
Insomnia - MARINE SURVEYOR Remeron
DVT PPx Lovenox subQ
FULL CODE
[2025-09-02] MEDS: DILAUDID 1 MG IV (20:03)
[2025-09-02] MEDS: DECADRON 4 MG IV (20:54)
--- NOTE | 2025-09-02 21:45 | PTCARENOTE ---
Pt received from ED via stretcher accompanied by ED staff. AAOx3. Stand and pivot to bed due to pain. VSS. Patient crying with complaints of extreme pain that she could not rate. RN administered PO Dilaudid as ordered. Pt oriented to room with call
argueta within reach.
[2025-09-02] MEDS: TYLENOL 650 MG PO (22:00)
[2025-09-02] MEDS: DILAUDID 4 MG PO (22:03)
[2025-09-02] MEDS: REMERON 30 MG PO (22:04)
[2025-09-03] MEDS: SENOKOT-S 4 TABLET PO (00:35)
[2025-09-03] MEDS: DILAUDID 1 MG IV ×5 (00:36→22:17)
[2025-09-03] MEDS: VALIUM INJECTION 2 MG IV ×2 (03:11→19:56)
[2025-09-03] MEDS: DILAUDID 4 MG PO ×2 (04:05→14:59)
[2025-09-03] MEDS: TORADOL 15 MG IV ×3 (05:14→22:17)
[2025-09-03 08:08] LABS: Hematocrit 29.3 % (37.0-47.0); Hemoglobin 9.8 g/dL (12.0-16.0); Mean Corp Hgb Conc. 33.4 g/dL (33.0-37.0); Mean Corpuscular Volume 93.9 fL (81.0-99.0); Platelet Count 189 10^3/uL (130-400); Red Cell Dist. Width 11.6 % (11.5-14.5)
[2025-09-03] MEDS: MIRALAX 17 GRAMS PO (08:11)
[2025-09-03] MEDS: DECADRON 4 MG IV ×2 (08:11→19:55)
[2025-09-03 08:12] LABS: Blood Urea Nitrogen 17 mg/dl (7-17); Calcium 9.1 mg/dl (8.4-10.2); Carbon Dioxide 27 mmol/L (22-30); Chloride 99 mmol/L (98-107); Estimated Creatinine Clearance 34 ml/min; Glucose 96 mg/dl (70-99); Sodium 131 mmol/L (135-145); eGFR > 60.00
[2025-09-03] MEDS: ZESTRIL 5 MG PO (08:12)
[2025-09-03 08:18] VITALS: BP 133/61
[2025-09-03] MEDS: ALDACTONE 50 MG PO (08:18)
[2025-09-03 08:26] LABS: Magnesium 2.0 mg/dl (1.6-2.3); Potassium 4.2 mmol/L (3.5-5.1)
[2025-09-03 08:35] VITALS: BP 141/72; PULSE 68; O2SAT 100
--- NOTE | 2025-09-03 09:46 | W.PN.HOSP.TC ---
Today's Communication/Plan
-
see outlined plan below
Assessment / Plan
Assessment / Plan
Assessment:
Acute pelvic pain on chronic pelvic/radiculopathy pain
Chronic opioid dependance
- chronically has LLE radicular pain into whole leg and to thigh on RLE
- Also has chronic LDDD with hx of laminectomy
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 Has previously had injections which helped in the past
- Also follows with Dr. Manuel - [facility] with planned spinal stimulator next week
- continue Valium prn (holding Tizanidine)
- continue Dilaudid - oral with IV for breakthrough
- start Gabapentin 300mg TID given radicular component
- prn Toradol
- continue empiric steroid trial
- Pelvis MRI and L Spine MRI w/wo contrast
- PT/OT
Essential HTN
- continue JELANI/Aldactone
hx of MGUS and chronic anemia
Insominia
- hold home Remeron while trialing Gabapentin
Constipation
- continue 4 tabs HS and also Miralax
- this AM - will give additional 4 tabs to replicate prn home regimen
Hyponatremia in setting of acute pain
- monitor
DVT ppx: Lovenox
Code: Full
d/w Jodi at bedside
Anticipated Discharge: > 48 hours
Subjective/Interval History
-
Date of Service: September 03, 2025
reports severe lower pelvic/groin pains bilaterally
suffers from chronic pains with radiculopathy - entire LLE and to thigh RLE
denies any urinary or symptoms but does reports constipation
Objective Data
-
Labs:
Laboratory Results
09/03/25
07:29
WBC 6.2
Hgb 9.8 L
Hct 29.3 L
Plt Count 189
Sodium 131 L
Potassium 4.2
Chloride 99
Carbon Dioxide 27
BUN 17
Creatinine 0.9
Glucose 96
Calcium 9.1
Vital Signs:
Vital Signs
Temp Pulse Resp BP Pulse Ox
98.1 F 71 18 133/61 96
09/03/25 08:18 09/03/25 08:18 09/03/25 08:18 09/03/25 08:18 09/03/25 08:40
Physical Exam
-
General: Appears in Distress and Pain
HEENT: Normocephalic and Atraumatic
Respiratory: Negative Wheezes
Cardiac: Regular Rhythm and S1/S2
GI: Soft and Nontender
Genito-urinary: No Costovertebral Tender; Negative Bloody Urine, Vaginal Bleeding or Vaginal Discharge
Musculoskeletal: No Edema
Neuro: AO x 3
Psych: Calm
Data Reviewed
-
Total Time Spent with Patient (in minutes): 45
Labs: Labs Reviewed by me
[2025-09-03] MEDS: SENOKOT 17.2 MG PO ×2 (10:53→19:55)
[2025-09-03] MEDS: NEURONTIN 300 MG PO ×3 (10:54→22:17)
[2025-09-03 14:38] VITALS: BP 129/60
[2025-09-03 14:39] VITALS: BMI 17.0
[2025-09-03] MEDS: TYLENOL 650 MG PO ×2 (14:47→19:55)
--- NOTE | 2025-09-03 16:15 | CM ---
Alert awake oriented patient who lives with her Jodi in a 1 story home with 2 steps to enter .She is independent in activates of daily living.She does drive .She uses no adaptive devices.
No VN in past . No SNF hx
Pharmacy [facility] [address] Dr Ulloa
PLAN Home with no needs
[2025-09-03] MEDS: COLACE 100 MG PO (22:17)
[2025-09-03 22:26] VITALS: BP 146/70
[2025-09-04] MEDS: VALIUM INJECTION 2 MG IV (02:28)
[2025-09-04] MEDS: TORADOL 15 MG IV ×2 (05:20→14:52)
[2025-09-04] MEDS: DILAUDID 4 MG PO ×2 (05:21→13:13)
[2025-09-04 06:57] LABS: Hematocrit 27.3 % (37.0-47.0); Hemoglobin 9.5 g/dL (12.0-16.0); Mean Corp Hgb Conc. 34.8 g/dL (33.0-37.0); Mean Corpuscular Volume 88.6 fL (81.0-99.0); Platelet Count 195 10^3/uL (130-400); Red Cell Dist. Width 11.8 % (11.5-14.5)
[2025-09-04 07:19] LABS: Blood Urea Nitrogen 24 mg/dl (7-17); Calcium 8.9 mg/dl (8.4-10.2); Carbon Dioxide 26 mmol/L (22-30); Chloride 102 mmol/L (98-107); Estimated Creatinine Clearance 38 ml/min; Glucose 95 mg/dl (70-99); Potassium 4.4 mmol/L (3.5-5.1); Sodium 133 mmol/L (135-145); eGFR > 60.00
[2025-09-04 07:35] VITALS: BP 134/64
[2025-09-04] MEDS: DECADRON 4 MG IV (08:18)
[2025-09-04] MEDS: NEURONTIN 300 MG PO ×2 (08:18→15:35)
[2025-09-04] MEDS: MIRALAX 17 GRAMS PO ×2 (08:18→11:54)
[2025-09-04] MEDS: SENOKOT 17.2 MG PO (08:19)
[2025-09-04] MEDS: ALDACTONE 50 MG PO (08:20)
[2025-09-04] MEDS: ZESTRIL 5 MG PO (08:21)
--- NOTE | 2025-09-04 11:08 | W.PN.HOSP.TC ---
Addendum entered and electronically signed by Khadar Chappell MD 09/04/25 16:12:
underweight
Original Note:
Today's Communication/Plan
-
GI evaluation for severe opioid induced constipation
Assessment / Plan
Assessment / Plan
Assessment:
Acute pelvic pain on chronic pelvic/radiculopathy pain
Chronic opioid dependance
- chronically has LLE radicular pain into whole leg and to thigh on RLE
- Also has chronic LDDD with hx of laminectomy
- follows with Dr. 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 Has previously had injections which helped in the past
- Also follows with Dr. Manuel - [facility] with planned spinal stimulator next week but likely will defer for a few weeks
- continue Valium prn (holding Tizanidine)
- continue Dilaudid - oral with IV for breakthrough
- continue Gabapentin 300mg TID given radicular component
- prn Toradol
- continue empiric steroid trial
- Pelvis MRI and L Spine MRI w/wo contrast: Small central disc herniation at L4/L5 causing MILD CENTRAL CANAL STENOSIS which appears to have increased since 05/24/2025. Severe chronic discogenic degenerative disease at L5/S1. no acute pelvic pathology
- PT/OT - outpatient therapy
Essential HTN
- continue JELANI/Aldactone
hx of MGUS and chronic anemia
Insomnia
- hold home Remeron with Gabapentin addition
severe opioid induced constipation
- MRI with severe constipation
- patient unwilling to titrate down pain regimen until spinal stimulator in place
- continue 4 tabs HS and also Miralax
- GI consulted
Hyponatremia in setting of acute pain
- monitor
DVT ppx: Lovenox
Code: Full
d/w Jodi at bedside
Anticipated Discharge: Within 24 hours
Subjective/Interval History
-
Date of Service: September 04, 2025
pain managed on current regimen including steroids and prn Valium
Gabapentin TID is helping
Objective Data
-
Labs:
Laboratory Results
09/04/25
06:11
WBC 6.9
Hgb 9.5 L
Hct 27.3 L
Plt Count 195
Sodium 133 L
Potassium 4.4
Chloride 102
Carbon Dioxide 26
BUN 24 H
Creatinine 0.8
Glucose 95
Calcium 8.9
Vital Signs:
Vital Signs
Temp Pulse Resp BP Pulse Ox
97.3 F 80 16 134/64 95
09/04/25 07:35 09/04/25 08:20 09/04/25 07:35 09/04/25 08:20 09/04/25 10:25
I&O
09/03/25 09/04/25 09/05/25
06:59 06:59 06:59
Intake Total 1200 / 1200
Balance 1200 / 1200
Physical Exam
-
General: No Apparent Distress and Appears Chronically Ill
HEENT: Normocephalic and Atraumatic
Respiratory: Negative Wheezes
Cardiac: Regular Rhythm and S1/S2
Musculoskeletal: No Edema
Neuro: AO x 3
Psych: Calm
Data Reviewed
-
Total Time Spent with Patient (in minutes): 42
Labs: Labs Reviewed by me
--- NOTE | 2025-09-04 12:45 | PN.CDI ---
CDI
- -
CDI:
Physician Documentation Request
Admit Date: 09/03/25 09:59
Dear Doctor Ta,
Please review the following and provide your response in the progress notes.
Clinical Indicators:
Height: 4 ft 11 inches
Weight: 84 lbs
BMI: 17.1
RD notes states 'underweight'
Please provide an associated diagnosis related to the abnormal BMI
BMI < or = to 19
Underweight
Weight Loss
Cachectic
Anorexia
- BMI is not significant
- Other
Use of terms such as suspected, likely, concern for, or probable (associated with a specific diagnosis that is being evaluated, monitored, or treated as if it exists) are acceptable and can be coded in the inpatient setting, when documented at the
time of discharge.
Thank you,
Jiamee Norris RN, BSN
CDI Specialist
tiger text
Please use your independent medical judgment in providing your response.
--- NOTE | 2025-09-04 14:07 | CON.GI ---
Addendum entered and electronically signed by Sean Putnam MD 09/04/25 15:32:
I saw and examined the patient.
The PASSENGER RELATIONS REPRESENTATIVE or PA's note was reviewed and I agree with the note.
Comment: 74yo female with chronic pain syndrome on increasing doses of pain meds planning stimulator presents with worsening constipation. She uses regimen of miralax, benefiber, dulcolax, senna at home. Her pain culture media laboratory assistant recently gave
samples of movantik, but she did not start it yet. Last colonoscopy 2021. MRI shows stool thoughout the colon.
REC:
Agree with Movantik 25mg daily
If inadequate, can add her existing bowel regimen to supplement- miralax, dulcolax, as needed.
She can also f/u with Dr Gill as outpt for titration of her bowel regimen.
Original Note:
Consultation
-
Date/Time Consultation Requested: 09/04/25 1104
Date/Time Consultation Performed: 09/04/25 1345
Requesting Provider: Dr. Chappell
Performing Provider: Dr. Putnam/ILENE Colin
Reason for Consultation: Opioid induced constipation
Medical History
Chief Complaint / HPI
Chief Complaint: intractable back pain
History of Present Illness:
74-year-old female past medical history of hypertension, MGUS, lumbar DDD with history of lumbar laminectomy, chronic pain syndrome, opioid dependence, left lower extremity radiculopathy, history of colon polyps, family history of colon cancer
(father), chronic constipation, migraines, chronic anemia presents to the emergency room on 09/02/2025 with intractable back pain. We are asked to evaluate for opioid-induced constipation. The patient has an underlying chronic constipation. She
states it is worsened since changing her pain regimen. She does follow with a paint coating machine operator and is planning on having a spinal cord stimulator placed. She states she usually has a bowel regimen consisting of Benefiber, MiraLAX, senna
daily. When she gets into 'trouble'. She uses 4 Dulcolax twice a day. She states this usually produces bowel movements within a couple hours. She then cleaned out and is able to go back to her usual regimen. She states that she was put on
hydromorphone recently and started only having some soft small bowel movements. MRI imaging showed a large amount of fecal burden. We are asked to evaluate to help facilitate bowel regimen. The patient denies any fevers, chills, nausea, vomiting,
melena, hematochezia, dysphagia or odynophagia. No early satiety or unintended weight loss. She is up-to-date with colonoscopy last performed in 2021.
Past Medical History
Past Medical History: Other (Hypertension, MGUS, lumbar DDD with history of lumbar laminectomy, chronic pain syndrome, opioid dependence, left lower extremity radiculopathy, colon polyps, family history of colon cancer, chronic constipation,
migraines, chronic anemia)
Past Surgical History: Other (5-S1 discectomy, , bladder lift)
Social History
Tobacco: Non-Smoker
Alcohol: None
Drug: Narcotics (Prescribed)
Personal:
Living: With Family
Family History
Family History: Other (Father history of colon cancer)
Allergies / Home Medications
Allergy/AdvReac Type Severity Reaction Status Date / Time
clindamycin (Clindamycin) Allergy Unknown Verified 09/02/25 15:42
�Medication �Instructions �Recorded
lisinopril 5 mg tablet 5 mg PO DAILY Blood Pressure 05/23/25
mirtazapine 30 mg tablet 30 mg PO HS Sleep 05/23/25
spironolactone 50 mg tablet 50 mg PO DAILY Fluid 05/23/25
Retention/Swelling
sennosides 8.6 mg-docusate sodium 1 tab-cap PO HS #10 tabs 05/26/25
50 mg tablet (2-in-1 Laxative)
hydromorphone 4 mg tablet 4 mg PO Q6H PRN severe pain 09/02/25
tizanidine 4 mg tablet 4 mg PO Q8H PRN muscle spasm 09/02/25
sennosides 8.6 mg-docusate sodium 4 tab-cap PO HS Constipation 09/03/25
50 mg tablet (Senna with Docusate
Sodium)
Review of Systems
-
All other systems: A 12 pt ROS was Negative except as stated above in HPI
Vital Signs
Temp Pulse Resp BP Pulse Ox
97.3 F 80 16 134/64 95
09/04/25 07:35 09/04/25 08:20 09/04/25 07:35 09/04/25 08:20 09/04/25 10:25
Physical Exam
Exam
General: No Apparent Distress
HEENT: Anicteric
Respiratory: Clear
Cardiac: Regular Rhythm
GI: Soft, Non Tender, Non Distended and Normal Bowel Sounds
Musculoskeletal: No Edema
Skin: Warm and Dry
Neuro: AO x 3
Psych: Calm
Results
WBC 6.9 10^3/uL (4.8-10.8) 09/04/25 06:11
Hgb 9.5 g/dL (12.0-16.0) L 09/04/25 06:11
Hct 27.3 % (37.0-47.0) L 09/04/25 06:11
MCV 88.6 fL (81.0-99.0) 09/04/25 06:11
Plt Count 195 10^3/uL (130-400) 09/04/25 06:11
Sodium 133 mmol/L (135-145) L 09/04/25 06:11
Potassium 4.4 mmol/L (3.5-5.1) 09/04/25 06:11
Chloride 102 mmol/L (98-107) 09/04/25 06:11
Carbon Dioxide 26 mmol/L (22-30) 09/04/25 06:11
BUN 24 mg/dl (7-17) H 09/04/25 06:11
Creatinine 0.8 mg/dL (0.6-1.0) 10/24/25 06:11
Calcium 8.9 mg/dl (8.4-10.2) 09/04/25 06:11
Diagnostic Image Results:
MRI lumbar spine/pelvis:
LUMBAR SPINE:
1. Small central disc herniation at L4/L5 causing MILD CENTRAL CANAL STENOSIS which appears to have increased since 05/24/2025.
2. Severe chronic discogenic degenerative disease at L5/S1.
PELVIS:
1. 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
2. SEVERE CONSTIPATION with a large amount of fecal material throughout the colon.
3. Small amount of peritoneal fluid in the pelvis.
Prior GI Procedures:
EGD: never
Colonoscopy: 10/17/2022 (Dr. Gill): Non-bleeding internal hemorrhoids.
- Diverticulosis in the sigmoid colon.
- The examination was otherwise normal.
- Tortuous colon.
- No specimens collected.
Colonoscopy 04/22/2015 (Dr. Pickering): - External and internal hemorrhoids.
- One 5 mm polyp in the transverse colon. Resected and
retrieved.
- One 3 mm polyp in the rectum. Resected and retrieved.
- The examination was otherwise normal.
Assessment / Plan
-
74-year-old female past medical history of hypertension, MGUS, lumbar DDD with history of lumbar laminectomy, chronic pain syndrome, opioid dependence, left lower extremity radiculopathy, history of colon polyps, family history of colon cancer
(father), chronic constipation, migraines, chronic anemia presents to the emergency room on 09/02/2025 with intractable back pain. We are asked to evaluate for opioid-induced constipation. Patient already started moving her bowels with an increased
dose of MiraLAX here. She did eat lunch. Her paint coating machine operator gave her samples of Movantik that she has at home. She did not start this. He states that he told her to try this and if it works he is willing to prescribe this. We did
discuss Movantik as well. Discussed how it works for opioid-induced constipation. We will give her a dose here. Patient's abdomen is soft, nondistended and nontender. Her is a retired radiologist. She states that she is already starting
to feel improved and would like to be discharged tonight if possible. I did speak to the internal medicine attending as well. Patient can also follow-up with Dr. Gill after discharge if needed.
Impression:
Opiate induced constipation with exacerbation with change in meds
MGUS, chronic anemia
Plan:
- Patient already started moving bowels
- Will give dose of Movantik 25 mg po now.
- Patient was given samples by her pain management doctor at home. Instructed to take Movantik 25 mg p.o. (1 hour prior to meal or 2 hours after daily)
- Her pain management physician states that if this worked for her he was willing to prescribe.
- Discussed with her that would avoid the Dulcolax at this time. Okay to continue Benefiber. Continue good hydration.
- Can use MiraLAX titrate up to effect after initiation of the Movantik to see how she does.
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 Patient also states that she has been dealing with chronic constipation for a long time and understand how to manage this as well.
- She is eating and drinking without any difficulty. Abdomen is soft, nontender, nondistended.
- Patient and would like to be discharged today if possible, no objections as well as patient feeling okay.
- Patient up-to-date with colonoscopy
- Can follow-up with Dr. Gill as an outpatient.
-
-
Thank you for consultation and allowing me to participate in the patient's care. Please call the simulation educator GI physician during the after hours with any questions or concerns.
[2025-09-04] MEDS: MOVANTIK 25 MG PO (14:52)
[2025-09-04 15:25] VITALS: BP 138/79
--- NOTE | 2025-09-04 15:36 | STATUS ---
SITUATION:
BACKGROUND:
ASSESSMENT:
RECOMMENDATION:
--- NOTE | 2025-09-04 16:12 | PTOTSP ---
CHART REVIEWED AND SPOKE WITH RN. PATIENT AND CONTACTED BEDSIDE. PATIENT AMBULATED BACK FROM BATHROOM INDEPENDENTLY, INCREASED SPEED AND LESS ANTALGIA THAN PREVIOUS SESSION. PATIENT DECLINING THE NEED FOR FURTHER AMBULATION/ELEVATION
ASSESSMENT DURING THIS STAY. PATIENT IS INTERESTED IN PURSUING OUTPATIENT P.T. UPON DISCHARGE. BARBARA TEXTED ATTENDING TO PROVIDE SCRIPT FOR PATIENT. WILL DISCHARGE FROM P.T. SERVICES.
--- NOTE | 2025-09-04 16:18 | W.DCSUMMARY ---
Discharge Summary
Discharge Data
Date of Admission: 09/03/25
Date of Discharge: 09/04/25
-
Pending Results: No
Hospital Course
74 y/o F with chronic pain syndrome, constipation presented with back and pelvic pain. Her MRI imaging showed small central disc herniation at L4/L5 causing MILD CENTRAL CANAL STENOSIS (increased since 05/24/2025) along with Severe chronic discogenic
degenerative disease at L5/S1. She was treated with home Dilaudid, Valium in addition to Gabapentin with adequate pain control. She was evaluated by PT/OT and will have outpatient therapy.
MRI also revealed severe constipation and she was given bowel regimen + Movantik with multiple movements prior to discharge.
She was discharged home 09/04/25.
Discharge Plan
-
Patient Disposition: Home (Routine Discharge)
Discharge Diagnosis/Procedures: chronic pain syndrome. Opioid induced constipation
Condition: Fair
Diet: Regular
Activity: As tolerated
Bathing Restrictions: None
Referrals:
Amy Ulloa, [Family Provider, Internal Medicine] - in two to three weeks
Referral Note: to discuss valium weaning
Additional Discharge Medication Instructions: stop Tizanidine while on Valium. No script for valium given recent prescription a few days ago (from Dr. Amezcua). Finish steroids with Medrol kelvin
Prescriptions:
New
acetaminophen 325 mg Tablet
650 mg PO Q4HPRN PRN (Reason: mild pain/WILLETT/temp> 100.4F) Qty: 100 0RF
diazepam [Valium] 5 mg tablet
5 mg PO Q8H PRN (Reason: muscle spasm) Qty: 30 0RF
gabapentin 300 mg Capsule
300 mg PO TID Qty: 90 0RF
methylprednisolone [Medrol (Kelvin)] 4 mg tablets,dose pack
See Rx Instructions .ROUTE .COMPLEX Qty: 21 0RF
Rx Instructions:
for 6 days
Movantik 25 mg tablet
25 mg PO DAILY Qty: 30 0RF
Continued
mirtazapine 30 mg Tablet
30 mg PO HS
lisinopril 5 mg Tablet
5 mg PO DAILY
spironolactone 50 mg Tablet
50 mg PO DAILY
sennosides-docusate sodium [2-in-1 Laxative] 8.6-50 mg tablet
1 tab-cap PO HS Qty: 10 0RF
hydromorphone 4 mg Tablet
4 mg PO Q6H PRN (Reason: severe pain)
sennosides-docusate sodium [Senna with Docusate Sodium] 8.6-50 mg Tablet
4 tab-cap PO HS
Discontinued
tizanidine 4 mg Tablet
4 mg PO Q8H PRN (Reason: muscle spasm)
Discharge Orders:
Discharge Patient (As Directed); Ordered 09/04/25
Ordered By: Khadar Chappell
Discharge Date and Time
Print Language: WOLOF
--- NOTE | 2025-09-04 16:26 | CM ---
MD entered order for discharge.
Pt said she is ready for discharge.
Her Jodi will drive her home.
MD to provide out pt PT script for pt to set up at home.
PLAN Home no needs
== END 2025-09-04 17:16 | disposition home or self-care (01) | DRG 552 ==
LOC: 4 EAST ACU 09:59
PROVIDERS: ADMITTING PHYSICIAN Student in an Organized Health Care Education/Training Program; ATTENDING PHYSICIAN Internal Medicine; CONSULT PHYSICIAN Specialist; EMERGENCY PHYSICIAN Emergency Medicine; FAMILY PHYSICIAN Internal Medicine
DX: M54.9 Dorsalgia, unspecified (principal); F11.20 Opioid dependence, uncomplicated; E87.1 Hypo-osmolality and hyponatremia; Z68.1 Body mass index [BMI] 19.9 or less, adult; G89.4 Chronic pain syndrome; I10 Essential (primary) hypertension; D64.9 Anemia, unspecified; K59.03 Drug induced constipation; T40.2X5A Adverse effect of other opioids, initial encounter; R63.6 Underweight; G47.00 Insomnia, unspecified; M48.061 Spinal stenosis, lumbar region without neurogenic claudication; D47.2 Monoclonal gammopathy; Z79.899 Other long term (current) drug therapy
CPT/HCPCS: 72158; 72197; 80048; 81003; 81015; 83735; 84439; 84443; 85027; 86140; 87086; 96361; 96374; 96375; 97162; 97165; 99285; A9575